=== PATIENT | female | born 1965 | race Caucasian/White ===

== ENCOUNTER 2018-09-04 13:59 | Inpatient (IN) ==
[2018-09-04] MEDS ORDERED: ONDANSETRON INJ 2 MG/ML 2 ML VIAL IV STA (14:24)
[2018-09-04] MEDS ORDERED: SODIUM CHLORIDE 0.9% 500 ML IV SCH (14:30)
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
[2018-09-04 15:08] LABS: Hematocrit (blood only) 42.9 % (37-47); Hemoglobin 15.6 g/dL (12.0-16.0); INR 1.7 (0.9-1.1); Mean Corpuscular Hgb Conc 36.4 g/dL (32-36); Mean Corpuscular Volume 98.4 fL (80-100); Mean Platelet Volume 12.5 fL (7.4-10.4); Nucleated RBC # (auto) 0.07 K/uL (0-0); Nucleated RBC % (auto) 0.2 %; Partial Thromboplastin Ratio 1.3; Partial Thromboplastin Time 34.9 Seconds (21.0-31.0); Platelet Count 183 K/uL (130-400); Prothrombin Time 16.6 Seconds (9.0-12.0); RDW Coefficient of Variation 14.1 % (11.5-14.5); RDW Standard Deviation 50.5 fL (36.4-46.3); Red Blood Count 4.36 M/uL (4.2-5.4); White Blood Count 32.08 K/uL (4.8-10.8)
[2018-09-04] MEDS: MoRPHine SULFATE 2 MG/ML CARP IV PRN (15:10)
[2018-09-04] MEDS ORDERED: PIPERACILLIN/TAZOBACTAM 4.5 GM/120 ML BAG IV ONE (15:10)
--- NOTE | 2018-09-04 15:13 | XRay Report ---
XR chest 1V portable CLINICAL HISTORY: weakness COMPARISON STUDY: Chest radiograph July 02, 2018. FINDINGS: Lung volumes are mildly diminished. There is no pneumothorax or pleural effusion. There is no evidence for pulmonary edema. Cardiomediastinal silhouette is normal. IMPRESSION: No acute cardiopulmonary findings. Electronically signed by: Guy Dyer M.D. 09/04/2018 3:11 PM
[2018-09-04] MEDS: ALBUMIN 25% 50 ML IV SCH ×2 (15:19→15:42)
[2018-09-04 15:23] LABS: Basophils # (auto) 0.04 K/uL (0-0.2); Basophils % (auto) 0.1 %; Eosinophils # (auto) 0.01 K/uL (0-0.5); Immature Granulocytes # (auto) 0.17 K/uL (0.00-0.02); Immature Granulocytes % (auto) 0.5 %; Lymphocytes # (auto) 0.69 K/uL (1.2-3.4); Lymphocytes % (auto) 2.2 %; Neutrophils # (auto) 28.27 K/uL (1.4-6.5); Neutrophils % (auto) 88.2 %; Toxic Vacuolation 1+
[2018-09-04 15:34] LABS: Alanine Aminotransferase 61 U/L (12-78); Albumin Level 2.1 gm/dl (3.4-5.0); Alkaline Phosphatase 379 U/L (45-117); Aspartate Aminotransferase 187 U/L (15-37); Bilirubin,Total 24.6 mg/dl (0.2-1); Blood Urea Nitrogen 16 mg/dl (7-18); Calcium 9.1 mg/dl (8.5-10.1); Carbon Dioxide 28 mmol/L (21-32); Chloride 86 mmol/L (98-107); Creatine Kinase 48 U/L (26-192); Glucose 110 mg/dl (70-99); Potassium 3.3 mmol/L (3.5-5.1); Sodium 125 mmol/L (136-145); Troponin I < 0.015 ng/ml (0-0.045)
[2018-09-04] MEDS ORDERED: SODIUM CHLORIDE 0.9% 1000ML 500 ML IV ONE (15:38)
--- NOTE | 2018-09-04 17:25 | Ultrasound Report ---
ULTRASOUND GUIDED DIAGNOSTIC AND THERAPEUTIC PARACENTESIS CLINICAL HISTORY: Ascites. Jaundice. PROCEDURE: The risks, benefits, and alternatives to the procedure were discussed with the patient inc luding the risk of bleeding, infection and injury to adjacent structures. The patient agreed to the procedure and informed written consent was obtained. Following real-time ultrasound localization, the skin of the right lower quadrant was prepped and draped. Following local anesthesia with Xylocaine, the sheath paracentesis needle was inserted and approximately 2.3 liters of straw-colored fluid was r emoved by vacuum suction. The patient tolerated the procedure well and no immediate complications were evident. IMPRESSION: Ultrasound-guided paracentesis with removal of 2.3 liters of ascites. 1 L of ascites was sent to the laboratory as ordered. Electronically signed by: Guy Dyer M.D. 09/04/2018 5:24 PM
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
--- NOTE | 2018-09-04 17:39 | Ultrasound Report ---
US gallbladder CLINICAL HISTORY: Jaundice. COMPARISON STUDY: MRCP September 01, 2018. FINDINGS: The liver is echogenic. There is coarsening of hepatic echotexture. The main portal pain is patent with with hepatofugal flow. A small amount of perihepatic ascites is noted. Sludge within the gallbladder was noted. There is mild gallbladder wall thickening. No sonographic Kaur sign was rep orted. Caliber of the common bile duct is at the upper limits of normal. There is no right hydronephr osis. The pancreas is within normal limits. IMPRESSION: 1. Fatty infiltration of the liver with cirrhosis. Reversal of flow within the main portal vein sugge sts portal hypertension. 2. Small amount of perihepatic ascites. 3. Sludge within the gallbladder with mild gallbladder wall thickening. No sonographic Kaur sign. N o convincing evidence for acute cholecystitis. Electronically signed by: Guy Dyer M.D. 09/04/2018 5:37 PM
[2018-09-04 17:41] LABS: Albumin Peritoneal Fluid < 0.6 g/dl; Total Protein Peritoneal Fluid 0.5 g/dl
[2018-09-04 17:53] LABS: Appearance Peritoneal Fluid CLEAR; Color Peritoneal Fluid YELLOW; Mononuclear WBC Peritoneal 72.7 %; Polynuclear WBC Peritoneal 27.3 %; RBC Peritoneal Fluid (A) < 3000 /uL; WBC Peritoneal Fluid (A) 92 /ul (0-300)
[2018-09-04] MEDS ORDERED: ONDANSETRON INJ 2 MG/ML 2 ML VIAL IV PRN (18:11)
[2018-09-04] MEDS ORDERED: ALUMINUM/MAGNESIUM SUSP 30 ML UDC PO PRN (18:11)
[2018-09-04 18:59] LABS: Appearance Urine Clear (Clear); Blood Urine Negative (Negative); Color Urine Dark Yellow; Glucose Urine UA Negative (Negative); Ketones Urine Negative (Negative); Leukocyte Esterase Urine Negative (Negative); Nitrite Urine Negative (Negative); Protein Urine Negative (Negative); Urobilinogen Urine Negative (Negative)
[2018-09-04] MEDS ORDERED: CEFEPIME 2,000 MG in SYRINGE 7.5 ML IV ONE (19:00)
[2018-09-04 19:01] LABS: Bilirubin Urine 1+ (Negative); Ictotest Urine Positive (Negative)
[2018-09-04] MEDS: SODIUM CHLORIDE 0.9% 1000ML 1,000 ML IV SCH (19:35)
[2018-09-04] MEDS ORDERED: methylPREDNISolone 40 MG in SYRINGE 0 ML IV ONE (20:00)
[2018-09-04] MEDS: POTASSIUM CHLORIDE 20 MEQ TABCR PO SCH (20:24)
[2018-09-05 05:00] LABS: Creatinine Clr Calc Pharmacy 68.6 ml/min; Est GFR (African American) 99.8; Est GFR (Non-African American) 86.1
[2018-09-05 06:27] LABS: Basophils # (auto) 0.02 K/uL (0-0.2); Basophils % (auto) 0.1 %; Eosinophils # (auto) 0.01 K/uL (0-0.5); Hemoglobin 13.7 g/dL (12.0-16.0); Immature Granulocytes # (auto) 0.09 K/uL (0.00-0.02); Immature Granulocytes % (auto) 0.4 %; Lymphocytes # (auto) 0.44 K/uL (1.2-3.4); Lymphocytes % (auto) 2.1 %; Mean Corpuscular Hgb Conc 36.1 g/dL (32-36); Mean Corpuscular Volume 97.2 fL (80-100); Mean Platelet Volume 12.4 fL (7.4-10.4); Monocytes # (auto) 0.88 K/uL (0.11-0.59); Monocytes % (auto) 4.1 %; Neutrophils % (auto) 93.3 %; Platelet Count 131 K/uL (130-400); RDW Coefficient of Variation 14.1 % (11.5-14.5); RDW Standard Deviation 50.1 fL (36.4-46.3); Red Blood Count 3.91 M/uL (4.2-5.4); White Blood Count 21.24 K/uL (4.8-10.8)
[2018-09-05 06:36] LABS: INR 1.8 (0.9-1.1)
[2018-09-05 07:23] LABS: Alanine Aminotransferase 50 U/L (12-78); Albumin Level 2.2 gm/dl (3.4-5.0); Alkaline Phosphatase 302 U/L (45-117); Aspartate Aminotransferase 146 U/L (15-37); Bilirubin,Total 22.8 mg/dl (0.2-1); Blood Urea Nitrogen 14 mg/dl (7-18); Carbon Dioxide 28 mmol/L (21-32); Chloride 90 mmol/L (98-107); Glucose 108 mg/dl (70-99); Potassium 2.8 mmol/L (3.5-5.1); Sodium 125 mmol/L (136-145)
[2018-09-05] MEDS: SODIUM CHLORIDE 0.9% 1000ML 1,000 ML IV SCH (08:12)
[2018-09-05] MEDS: POTASSIUM CHLORIDE 20 MEQ TABCR PO SCH ×2 (08:21→21:26)
[2018-09-05] MEDS: SPIRONOLACTONE 100 MG TAB PO SCH (08:22)
[2018-09-05] MEDS: POTASSIUM CHLORIDE / WTR 10 MEQ/100 ML PLCT IV SCH ×4 (08:37→12:27)
[2018-09-05] MEDS ORDERED: methylPREDNISolone 4 MG TAB PO SCH (09:00)
[2018-09-05] MEDS: CEFEPIME 2,000 MG in SYRINGE 7.5 ML IV SCH ×2 (09:47→21:23)
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
--- NOTE | 2018-09-05 10:00 | Gastroenterology Progress Note ---
Date of Service September 05, 2018 Supervising Physician Co-Signing Physician Notes This consult was seen for Case Results & Data Vital Signs (Past 12 Hours) Vital Signs Temp Pulse Pulse Resp BP Pulse Ox 09/05/18 07:01 36.7 C 92 H 15 110/70 91 09/05/18 00:00 88 09/04/18 23:05 36.4 C L 90 18 107/70 93
[2018-09-05] MEDS: ALBUMIN 25% 50 ML IV SCH ×3 (10:53→21:25)
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
[2018-09-05] MEDS: FUROSEMIDE 40 MG TAB PO SCH (11:12)
[2018-09-05] MEDS: MoRPHine SULFATE 2 MG/ML CARP IV PRN ×2 (11:14→21:23)
[2018-09-06 06:04] LABS: Alanine Aminotransferase 45 U/L (12-78); Albumin Level 2.6 gm/dl (3.4-5.0); Alkaline Phosphatase 274 U/L (45-117); Aspartate Aminotransferase 116 U/L (15-37); Bilirubin,Total 21.3 mg/dl (0.2-1); Blood Urea Nitrogen 16 mg/dl (7-18); Calcium 8.4 mg/dl (8.5-10.1); Carbon Dioxide 29 mmol/L (21-32); Chloride 92 mmol/L (98-107); Glucose 102 mg/dl (70-99); Potassium 3.3 mmol/L (3.5-5.1); Sodium 126 mmol/L (136-145)
[2018-09-06 06:22] LABS: Hematocrit (blood only) 37.6 % (37-47); Hemoglobin 13.4 g/dL (12.0-16.0); Mean Corpuscular Hgb Conc 35.6 g/dL (32-36); Mean Corpuscular Volume 96.9 fL (80-100); Platelet Count 124 K/uL (130-400); RDW Standard Deviation 49.6 fL (36.4-46.3); Red Blood Count 3.88 M/uL (4.2-5.4); White Blood Count 24.88 K/uL (4.8-10.8)
[2018-09-06 06:32] LABS: Basophils # (auto) 0.01 K/uL (0-0.2); Echinocytes 1+; Giant Platelets 1+; Immature Granulocytes # (auto) 0.11 K/uL (0.00-0.02); Immature Granulocytes % (auto) 0.4 %; Lymphocytes # (auto) 0.74 K/uL (1.2-3.4); Monocytes # (auto) 2.74 K/uL (0.11-0.59); Neutrophils # (auto) 21.28 K/uL (1.4-6.5); Neutrophils % (auto) 85.6 %; Pappenheimer Bodies Occasional; Platelet Estimate Normal (Normal); Target Cells 1+; Toxic Vacuolation 2+
[2018-09-06 06:58] LABS: INR 1.9 (0.9-1.1); Prothrombin Time 18.3 Seconds (9.0-12.0)
[2018-09-06] MEDS: SPIRONOLACTONE 100 MG TAB PO SCH (08:37)
[2018-09-06] MEDS: FUROSEMIDE 40 MG TAB PO SCH (08:37)
[2018-09-06] MEDS: POTASSIUM CHLORIDE 20 MEQ TABCR PO SCH (08:38)
[2018-09-06] MEDS: ALBUMIN 25% 50 ML IV SCH ×3 (08:38→21:37)
[2018-09-06] MEDS: MoRPHine SULFATE 2 MG/ML CARP IV PRN ×3 (09:36→21:37)
--- NOTE | 2018-09-06 09:59 | Gastroenterology Progress Note ---
Date of Service September 06, 2018 Assessment & Plan (1) Liver failure: Alcoholic cirrhosis with portal hypertension and possible SBP. MELD is 30. She is following with [facility]'s Transplant Hepatology. T Bili may have worsened due to Augmentin use. -Continue IV Cefepime for treatment of possible SBP x 5 days -Continue to trend labs/MELD score -Continue IV Lasix & Aldactone with 40:100 ratio -Continue IV albumin as previously ordered by Dr. Corrigan -Alcohol abstinence is critical, particularly due to potential transplant needs If fluid reaccumulates, consider repeat paracentesis. Thank you for allowing us to participate in the care of this patient. If you should have any further questions or concerns, do not hesitate to contact us at extension [phone] or [phone]. Present on Admission?: Yes Supervising Physician Co-Signing Physician Notes Agree with TYLER Elizabeth as above Abd: Soft, NT, + fluid wave, +BS Long discussion with patient and her father regarding short-term (90 day) mortality as evidenced by MELD and Bilirubin and long-term morbidity and mortality I encouraged them to continue followup with Dr. Cotton of [facility] for transplant evaluation Will discuss Midodrine therapy with him directly, though think it is reasonable to hold it for now Continue current therapy Discussed need for total abstinence from alcohol and she states she has not had a drink in 3 weeks Will follow clinical course and make further recommendations as needed. Subjective Patient is a 53 yo female with cirrhosis, jaundice, & possible SBP. Her MELD score is 30 today. She had a paracentesis upon admission. WBCs did not meet threshold for SBP, however patient was on antibiotics prior to the paracentesis (during which 2.3 L were removed). She reports her abdominal bloating and discomfort has improved. She is notably jaundiced. She saw [facility] last week and was placed on Metolazone. Unfortunately, her K did not tolerate this well. She had further labs performed through them as well. The etiology for her cirrhosis is alcoholic. Her autoimmune and infectious hepatitis work-up has been negative. She denies any new complaints. Labs today indicate a WBC count of 24.88, INR 1.9, K 3.3, Na 126, T Bili 21.3, AST 116, ALT 45, Alk phos 274, Cr 0.78. Review of Systems Constitutional: no fever and no chills Eyes: yellow eyes Respiratory: no cough Cardiovascular: no chest pain Gastrointestinal: no abdominal pain and no bloating Musculoskeletal: + back pain Integumentary: + yellowing of the skin Neurologic: no confusion Physical Exam Constitutional: WD/WN, vitals as above Eyes: scleral icterus ENMT: external ear and nose normal, oropharynx normal Respiratory: normal respiratory effort, lungs clear to auscultation Cardiovascular: RRR, no murmur, no edema Gastrointestinal (Abdomen): normal bowel sounds, soft, nontender, no hepatosplenomegaly Musculoskeletal: no cyanosis or clubbing, extremities motor strength 5/5 Skin: + jaundice Neurologic: moves all extremities Speech / Cognition: normal speech Psychiatric: A+Ox3, euthymic affect Results & Data Vital Signs (Past 12 Hours) Vital Signs Temp Pulse Resp BP Pulse Ox 09/06/18 07:45 36.7 C 92 H 18 115/75 91 09/06/18 04:00 37 C 71 20 110/71 100 09/05/18 23:12 36.8 C 87 16 115/72 92 (1) Liver failure Hepatic coma status: without hepatic coma Liver failure chronicity: subacute Qualified Code(s): K72.00 - Acute and subacute hepatic failure without coma
[2018-09-06] MEDS: CEFEPIME 2,000 MG in SYRINGE 7.5 ML IV SCH ×2 (10:42→21:37)
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
[2018-09-06] MEDS: POTASSIUM CHLORIDE PWD 20 MEQ PACK PO SCH (21:37)
[2018-09-07 05:45] LABS: Hematocrit (blood only) 37.6 % (37-47); Hemoglobin 13.6 g/dL (12.0-16.0); Mean Corpuscular Hgb Conc 36.2 g/dL (32-36); Mean Corpuscular Volume 97.7 fL (80-100); Mean Platelet Volume 12.1 fL (7.4-10.4); Platelet Count 110 K/uL (130-400); RDW Coefficient of Variation 14.1 % (11.5-14.5); RDW Standard Deviation 49.8 fL (36.4-46.3); Red Blood Count 3.85 M/uL (4.2-5.4); White Blood Count 23.76 K/uL (4.8-10.8)
[2018-09-07 05:46] LABS: INR 1.9 (0.9-1.1); Prothrombin Time 18.4 Seconds (9.0-12.0)
[2018-09-07 05:58] LABS: Basophils # (auto) 0.02 K/uL (0-0.2); Basophils % (auto) 0.1 %; Eosinophils # (auto) 0.03 K/uL (0-0.5); Eosinophils % (auto) 0.1 %; Giant Platelets 1+; Immature Granulocytes # (auto) 0.14 K/uL (0.00-0.02); Immature Granulocytes % (auto) 0.6 %; Lymphocytes # (auto) 1.14 K/uL (1.2-3.4); Lymphocytes % (auto) 4.8 %; Monocytes # (auto) 1.77 K/uL (0.11-0.59); Monocytes % (auto) 7.4 %; Neutrophils # (auto) 20.66 K/uL (1.4-6.5)
[2018-09-07 06:16] LABS: Alanine Aminotransferase 43 U/L (12-78); Albumin Level 2.8 gm/dl (3.4-5.0); Alkaline Phosphatase 274 U/L (45-117); Aspartate Aminotransferase 123 U/L (15-37); Bilirubin,Total 20.6 mg/dl (0.2-1); Blood Urea Nitrogen 17 mg/dl (7-18); Calcium 9.2 mg/dl (8.5-10.1); Carbon Dioxide 27 mmol/L (21-32); Chloride 90 mmol/L (98-107); Glucose 92 mg/dl (70-99); Potassium 3.5 mmol/L (3.5-5.1); Sodium 127 mmol/L (136-145)
[2018-09-07] MEDS: ALBUMIN 25% 50 ML IV SCH ×3 (08:23→20:45)
[2018-09-07] MEDS: POTASSIUM CHLORIDE PWD 20 MEQ PACK PO SCH ×2 (08:54→20:47)
[2018-09-07] MEDS: SPIRONOLACTONE 100 MG TAB PO SCH (08:54)
[2018-09-07] MEDS: FUROSEMIDE 40 MG TAB PO SCH (08:54)
[2018-09-07] MEDS: CEFEPIME 2,000 MG in SYRINGE 7.5 ML IV SCH ×2 (08:59→20:45)
[2018-09-07] MEDS: MoRPHine SULFATE 2 MG/ML CARP IV PRN ×3 (09:39→22:21)
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
[2018-09-07] MEDS ORDERED: LACTULOSE SYRUP 30 GM/45 ML UDP PO ONE (16:30)
--- NOTE | 2018-09-07 18:50 | Progress Note ---
DATE: 09/07/2018 GASTROENTEROLOGY PROGRESS NOTE RACE: . SUBJECTIVE: I had the pleasure of seeing Esther Sutherland today at her bedside. She does state that she is having some increased abdominal girth, which she notices since yesterday. She did have a bowel movement overnight, though states that it was small. She does tolerate her liquid diet at the present time. She denies any hematemesis, melena, or hematochezia. She further denies any chest pain, palpitations, shortness of breath, cough, dysuria, or hematuria. She does continue to note dark urine. She has no further complaints. REVIEW OF SYSTEMS: Negative x10 system review other than pertinent positives listed in the HPI. PHYSICAL EXAMINATION: VITAL SIGNS: Temp 36.6, pulse 92, respirations 19, blood pressure 106/71, pulse ox 91% on room air. GENERAL: She has noted jaundice. Chronic ill appearing. HEAD: Normocephalic, atraumatic. EYES: Pupils equally round. Sclerae are icteric. ENT: External evaluation of ears and nose are normal. NECK: Soft and supple. CHEST: Decreased breath sounds in bilateral bases. CARDIOVASCULAR SYSTEM: Regular rate and rhythm. ABDOMEN: Soft, positive fluid wave, distended. Positive bowel sounds. EXTREMITIES: No clubbing, cyanosis, or edema. LABORATORY STUDIES: From today include a white blood cell count of 23.76, hemoglobin 13.6, hematocrit 37.6 and a platelet count of 110. PT 18.4, INR 1.9. Sodium 127, potassium 3.5, chloride 90, bicarbonate 27, blood glucose 92, BUN 17, creatinine 0.78, total bilirubin 20.6, AST 123, ALT 43, alkaline phosphatase 274. IMPRESSION: A 53-year-old female with decompensated Laennec's cirrhosis with questionable spontaneous bacterial peritonitis, ascites and no evidence of acute liver failure. PLAN: I did discuss the case in detail with Dr. Yury Han' nurse, today at [facility]. I also arranged to have the patient's records transferred including the inpatient medical records transferred with permission from Esther for his review. I would recommend at the present time that she be continued on cefepime 2 g IV q.12 hours as well as Aldactone 100 mg p.o. q.a.m., furosemide 40 mg p.o. q.a.m. and p.r.n. medications as prescribed. I will await any input from Dr. Cotton and follow her clinical course and make further recommendations as needed. Once again, thanks for allowing me to participate in the care of this patient. If you have any further questions, please do not hesitate in contacting me.
[2018-09-08 06:30] LABS: Hematocrit (blood only) 37.1 % (37-47); Hemoglobin 13.3 g/dL (12.0-16.0); Mean Corpuscular Hgb Conc 35.8 g/dL (32-36); Mean Corpuscular Volume 97.4 fL (80-100); RDW Coefficient of Variation 14.1 % (11.5-14.5); RDW Standard Deviation 49.9 fL (36.4-46.3); Red Blood Count 3.81 M/uL (4.2-5.4); White Blood Count 26.29 K/uL (4.8-10.8)
[2018-09-08 06:32] LABS: Mean Platelet Volume 11.7 fL (7.4-10.4); Platelet Count 89 K/uL (130-400)
[2018-09-08 06:41] LABS: INR 1.9 (0.9-1.1); Prothrombin Time 18.3 Seconds (9.0-12.0)
[2018-09-08 07:14] LABS: Alanine Aminotransferase 39 U/L (12-78); Albumin Level 3.1 gm/dl (3.4-5.0); Alkaline Phosphatase 280 U/L (45-117); Aspartate Aminotransferase 113 U/L (15-37); Bilirubin,Total 20.9 mg/dl (0.2-1); Blood Urea Nitrogen 14 mg/dl (7-18); Calcium 8.8 mg/dl (8.5-10.1); Carbon Dioxide 28 mmol/L (21-32); Chloride 92 mmol/L (98-107); Glucose 94 mg/dl (70-99); Magnesium 2.2 mg/dl (1.8-2.4); Potassium 3.4 mmol/L (3.5-5.1); Sodium 128 mmol/L (136-145)
[2018-09-08] MEDS: FUROSEMIDE 40 MG TAB PO SCH (09:01)
[2018-09-08] MEDS: POTASSIUM CHLORIDE PWD 20 MEQ PACK PO SCH ×2 (09:01→20:16)
[2018-09-08] MEDS: ALBUMIN 25% 50 ML IV SCH (09:01)
[2018-09-08] MEDS: SPIRONOLACTONE 100 MG TAB PO SCH (09:01)
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
[2018-09-08] MEDS: CEFEPIME 2,000 MG in SYRINGE 7.5 ML IV SCH ×2 (09:51→20:16)
[2018-09-08] MEDS: MoRPHine SULFATE 2 MG/ML CARP IV PRN ×2 (10:40→15:18)
--- NOTE | 2018-09-08 13:57 | Ultrasound Report ---
PARACENTESIS UNDER ULTRASOUND GUIDANCE CLINICAL HISTORY: ascites POSSIBLE SPONTANEOUS BACTERIAL PERITONITIS COMPARISON STUDY: 09/04/2018 FINDINGS: A timeout was performed. The risks of procedure were explained to the patient informed consent was obtained. There is insufficient ascitic fluid present for therapeutic catheter paracentesis. There is a small c ollection of fluid within the right lower quadrant. The patient was prepped and draped in sterile fas hion. The skin was anesthetized with 1% lidocaine. Under ultrasound guidance, the peritoneal cavity w as entered with an 18-gauge needle. 120 cc of ascitic fluid was aspirated and sent to the laboratory for analysis. The patient tolerated the procedure well and left the department in satisfactory condit ion. IMPRESSION: 1. There was insufficient fluid for a therapeutic paracentesis. 2. Ultrasound-guided diagnostic paracentesis was performed. 120 cc of straw-colored fluid was aspirat ed and sent to the laboratory for analysis. Electronically signed by: Geoffrey Huffman M.D. 09/08/2018 1:56 PM
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
[2018-09-08 14:27] LABS: Albumin Peritoneal Fluid 0.7 g/dl
[2018-09-08 14:53] LABS: Appearance Peritoneal Fluid CLEAR; Color Peritoneal Fluid YELLOW; Mononuclear WBC Peritoneal 74.3 %; Polynuclear WBC Peritoneal 25.7 %; RBC Peritoneal Fluid (A) < 3000 /uL; WBC Peritoneal Fluid (A) 143 /ul (0-300)
[2018-09-09] MEDS: MoRPHine SULFATE 2 MG/ML CARP IV PRN ×3 (00:39→20:55)
[2018-09-09 07:36] LABS: Hematocrit (blood only) 38.6 % (37-47); Hemoglobin 13.9 g/dL (12.0-16.0); Mean Corpuscular Volume 98.2 fL (80-100); Mean Platelet Volume 11.2 fL (7.4-10.4); Platelet Count 76 K/uL (130-400); RDW Coefficient of Variation 14.1 % (11.5-14.5); RDW Standard Deviation 50.7 fL (36.4-46.3); Red Blood Count 3.93 M/uL (4.2-5.4); White Blood Count 30.32 K/uL (4.8-10.8)
[2018-09-09 07:41] LABS: INR 1.8 (0.9-1.1); Prothrombin Time 17.5 Seconds (9.0-12.0)
[2018-09-09 07:45] LABS: Alanine Aminotransferase 40 U/L (12-78); Alkaline Phosphatase 302 U/L (45-117); Aspartate Aminotransferase 118 U/L (15-37); Calcium 8.6 mg/dl (8.5-10.1); Carbon Dioxide 26 mmol/L (21-32); Chloride 93 mmol/L (98-107); Glucose 87 mg/dl (70-99); Magnesium 2.1 mg/dl (1.8-2.4); Sodium 127 mmol/L (136-145)
[2018-09-09 08:26] LABS: Blood Urea Nitrogen 14 mg/dl (7-18)
[2018-09-09 08:33] LABS: Bilirubin,Total 22.8 mg/dl (0.2-1)
[2018-09-09] MEDS: FUROSEMIDE 40 MG TAB PO SCH (08:47)
[2018-09-09] MEDS: SPIRONOLACTONE 100 MG TAB PO SCH (08:47)
[2018-09-09] MEDS: POTASSIUM CHLORIDE PWD 20 MEQ PACK PO SCH ×2 (08:47→20:55)
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
--- NOTE | 2018-09-09 09:28 | Gastroenterology Progress Note ---
Date of Service September 09, 2018 Assessment & Plan (1) Liver failure: Alcoholic cirrhosis with portal hypertension and possible SBP. MELD ranging between 25-35 this visit. She is following with [facility]'s Transplant Hepatology. -Continue IV Cefepime for treatment of possible SBP x 5 days total -Continue to trend labs/MELD score -Continue IV Lasix & Aldactone with 40:100 ratio -Given worsening leukocytosis, plan to davison-culture patient with Urinalysis/culture, blood culture, CXR, peripheral smear, & obtain ID opinion regarding leuocytosis -Alcohol abstinence is critical, particularly due to potential transplant needs Thank you for allowing us to participate in the care of this patient. If you should have any further questions or concerns, do not hesitate to contact us at extension [phone] or [phone]. Supervising Physician Co-Signing Physician Notes Agree with TYLER Elizabeth as above Abd: Soft, tender throughout, slightly distended, +BS Consistently elevated WBC on Cefepime for possible SBP ID consulted Pancultured Continue current therapy Continue supportive care Subjective Patient is 53 yo female with cirrhosis & liver failure. She underwent a repeat paracentesis on 09/08. Only 120 ccs were present to drain and fluid studies indicated WBC count of 143. Her WBC count bumped today to 30.32. She reports some abdominal bloating. She denies any new symptoms. Review of Systems Eyes: yellow eyes Respiratory: no cough and no dyspnea Cardiovascular: no chest pain Gastrointestinal: + bloating; no abdominal pain Moving bowels multiple times daily Integumentary: + yellowing of the skin Neurologic: no confusion Physical Exam Constitutional: WD/WN, vitals as above Respiratory: normal respiratory effort, lungs clear to auscultation Cardiovascular: RRR, no murmur, no edema Gastrointestinal (Abdomen): normal bowel sounds, soft, nontender, no hepatosplenomegaly Skin: + jaundice Results & Data Vital Signs (Past 12 Hours) Vital Signs Temp Pulse Resp BP Pulse Ox 09/09/18 07:31 36.8 C 88 17 109/69 95 09/09/18 04:15 36.7 C 92 H 18 116/75 93 09/09/18 00:00 37.0 C 95 H 16 116/73 93 (1) Liver failure Hepatic coma status: without hepatic coma Liver failure chronicity: subacute Qualified Code(s): K72.00 - Acute and subacute hepatic failure without coma
--- NOTE | 2018-09-09 10:03 | XRay Report ---
XR chest 2V routine CLINICAL HISTORY: Elevated WBC COMPARISON STUDY: 09/04/2018 FINDINGS: The heart is normal in size. There are basilar airspace opacities, atelectatic versus infec tious/inflammatory. There is no overt failure. There is equivocal trace left pleural effusion.[ IMPRESSION: Interval development of basilar airspace opacities. While likely atelectatic, an infectio us/inflammatory process could appear similar Electronically signed by: Geoffrey Huffman M.D. 09/09/2018 10:02 AM
[2018-09-09 10:06] LABS: Appearance Urine Cloudy (Clear); Bacteria Urine Automated Negative (Negative); Blood Urine Negative (Negative); Color Urine Dark Yellow; Epithelial Cell Urine Auto >30 /lpf (0-5); Glucose Urine UA Negative (Negative); Specific Gravity Urine 1.021 (1.000-1.030); Urobilinogen Urine Negative (Negative)
[2018-09-09 10:21] LABS: Cast Urine Automated >30 /lpf (0-5)
[2018-09-09] MEDS: CEFEPIME 2,000 MG in SYRINGE 7.5 ML IV SCH ×2 (10:42→20:56)
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
[2018-09-10 07:27] LABS: INR 1.7 (0.9-1.1); Prothrombin Time 16.6 Seconds (9.0-12.0)
[2018-09-10 07:28] LABS: Hematocrit (blood only) 39.7 % (37-47); Hemoglobin 14.2 g/dL (12.0-16.0); Mean Corpuscular Hgb Conc 35.8 g/dL (32-36); Mean Corpuscular Volume 97.3 fL (80-100); Mean Platelet Volume 11.9 fL (7.4-10.4); Platelet Count 74 K/uL (130-400); RDW Coefficient of Variation 14.1 % (11.5-14.5); RDW Standard Deviation 50.2 fL (36.4-46.3); Red Blood Count 4.08 M/uL (4.2-5.4); White Blood Count 30.41 K/uL (4.8-10.8)
[2018-09-10 08:16] LABS: Alanine Aminotransferase 40 U/L (12-78); Albumin Level 2.8 gm/dl (3.4-5.0); Alkaline Phosphatase 337 U/L (45-117); Aspartate Aminotransferase 112 U/L (15-37); Bilirubin,Total 23.7 mg/dl (0.2-1); Blood Urea Nitrogen 15 mg/dl (7-18); Calcium 8.7 mg/dl (8.5-10.1); Carbon Dioxide 26 mmol/L (21-32); Chloride 92 mmol/L (98-107); Glucose 85 mg/dl (70-99); Potassium 4.4 mmol/L (3.5-5.1); Sodium 124 mmol/L (136-145)
[2018-09-10] MEDS: SPIRONOLACTONE 100 MG TAB PO SCH (08:40)
[2018-09-10] MEDS: POTASSIUM CHLORIDE PWD 20 MEQ PACK PO SCH ×2 (08:40→20:43)
[2018-09-10] MEDS: FUROSEMIDE 40 MG TAB PO SCH (08:40)
[2018-09-10] MEDS: CEFEPIME 2,000 MG in SYRINGE 7.5 ML IV SCH (08:42)
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
[2018-09-10] MEDS ORDERED: NORMOSOL-R 250 ML IV ONE ×2 (11:55→12:30)
[2018-09-10] MEDS: MoRPHine SULFATE 2 MG/ML CARP IV PRN ×3 (12:18→21:04)
[2018-09-10] MEDS ORDERED: IOVERSOL 100ml IV PRN (12:47)
--- NOTE | 2018-09-10 13:48 | CT Scan Report ---
CT lumbar spine w con CLINICAL HISTORY: 53 years-old Female presenting with Back pain; concern for infection. TECHNIQUE: Multidetector CT of the lumbar spine was performed after the administration of intravenous contrast. IV contrast: 93 mL of Optiray 320. One or more dose lowering techniques were used consiste nt with the principles of ALARA (as low as reasonably achievable), including automatic exposure contr ol, mA or kV adjustment to individual patient size, and/or use of iterative reconstruction. COMPARISON: 07/02/2018. CT DOSE (mGy.cm): The estimated cumulative dose is 502.49 mGy.cm. 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 Normal lumbar lordosis. Vertebral bodies maintain normal height and alignment. Intervertebral disc he ights preserved. No osseous spinal canal and neural foraminal narrowing. No osseous erosion. Limited evaluation of the soft tissues on CT demonstrates no spinal canal effacement. No significant effaceme nt of the neural foraminal fat. Trace osteophytosis at L2-3 and L3-4. No infiltration of the paraspin al fat planes. Paraspinal musculature normal. Mucosal hyperemia of the gallbladder with significant gallbladder wall thickening and/or pericholecys tic fluid, which may be secondary. There is a small to moderate amount of ascites. Heterogeneity of t he liver likely correlates with known underlying cirrhosis. Atherosclerosis of the normal caliber abd ominal aorta. IMPRESSION: 1. No acute osseous injury or evidence of advanced degenerative change. No CT evidence of discitis o steomyelitis. 2. Cirrhosis with ascites. Gallbladder wall thickening is likely secondary to cirrhosis. Electronically signed by: Dragan Corley M.D. 09/10/2018 1:47 PM
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
--- NOTE | 2018-09-10 16:38 | Infectious Disease Progress Nt ---
Date of Service September 10, 2018 Assessment & Plan (1) Spontaneous bacterial peritonitis: 53-year-old female with end-stage liver disease from alcoholic cirrhosis, admitted with abdominal pain and marked leukocytosis. Although paracentesis findings not consistent with peritonitis, patient has been on antibiotics prior to obtaining specimen. Significance of increase in white count of unclear significance given clinical improvement. Suspect she now has an elevated baseline white blood cell count and is hovering around that. No evidence of back infection on CT scanning. Would continue on cefepime for now and follow white count. Will follow. Subjective Patient seen in follow-up for possible bacterial peritonitis. Will complain of back pain, CT scan negative for evidence of infection. White count remains elevated. Cultures still negative. Review of Systems Review of Systems: All systems reviewed & are unremarkable except as noted in HPI & below Physical Exam Constitutional: WD/WN, vitals as above no acute distress Eyes: PERRL, conjunctivae normal, anicteric sclerae ENMT: external ear and nose normal, oropharynx normal Neck: trachea midline, no thyromegaly normal visual inspection Respiratory: normal respiratory effort, lungs clear to auscultation no respiratory distress Cardiovascular: RRR, no murmur, no edema Heart Sounds: no gallop and no cardiac rub Gastrointestinal (Abdomen): Inspection/Auscultation: + abdomen distended and normal bowel sounds Percussion/Palpation: + abdomen tender; no hepatosplenomegaly and no abdominal mass Musculoskeletal: no cyanosis or clubbing, extremities motor strength 5/5 Head/Neck/Chest: normocephalic, head atraumatic and neck supple Skin: no rashes, warm and dry Neurologic: moves all extremities; no focal motor deficits Psychiatric: A+Ox3, euthymic affect Lymphatic: no cervical or axillary lymphadenopathy no inguinal lymphadenopathy Results & Data Vital Signs (Past 12 Hours) Vital Signs Temp Pulse Pulse Resp BP Pulse Ox 09/10/18 16:00 36.6 C 94 H 18 120/79 96 09/10/18 11:43 36.5 C 105 H 17 131/89 94 09/10/18 07:57 36.8 C 97 H 18 115/77 95 Laboratory Results Short CBC 09/10/18 Range/Units 06:45 WBC 30.41 H* (4.8-10.8) K/uL Hgb 14.2 (12.0-16.0) g/dL Hct 39.7 (37-47) % Plt Count 74 L (130-400) K/uL BMP 09/10/18 06:45 Sodium 124 L Potassium 4.4 Chloride 92 L Carbon Dioxide 26 BUN 15 Creatinine Glucose 85 Calcium 8.7 Liver Function 09/10/18 Range/Units 06:45 Total Bilirubin 23.7 H (0.2-1) mg/dl AST 112 H (15-37) U/L ALT 40 (12-78) U/L Alkaline Phosphatase 337 H (45-117) U/L Albumin 2.8 L (3.4-5.0) gm/dl Diagnostic Findings Microbiology 09/08/18 13:52 Peritoneal Fluid Gram Stain - Final 09/08/18 13:52 Peritoneal Fluid Aerobic and Anaerobic Culture - Preliminary No growth to date. 09/09/18 09:34 Blood Aerobic Blood Culture - Preliminary No growth in Aerobic bottle after 24 hours. 09/09/18 09:34 Blood Anaerobic Blood Culture - Preliminary No growth in Anaerobic bottle after 24 hours. 09/09/18 09:44 Blood Aerobic Blood Culture - Preliminary No growth in Aerobic bottle after 24 hours. 09/09/18 09:44 Blood Anaerobic Blood Culture - Preliminary No growth in Anaerobic bottle after 24 hours. 09/04/18 15:28 Blood Aerobic Blood Culture - Final No growth in Aerobic bottle after 5 days. 09/04/18 15:28 Blood Anaerobic Blood Culture - Final No growth in Anaerobic bottle after 5 days. 09/04/18 15:28 Blood Aerobic Blood Culture - Final No growth in Aerobic bottle after 5 days. 09/04/18 15:28 Blood Anaerobic Blood Culture - Final No growth in Anaerobic bottle after 5 days. 09/04/18 Unknown Peritoneal Fluid Gram Stain - Final 09/04/18 Unknown Peritoneal Fluid Aerobic and Anaerobic Culture - Final No growth CT lumbar spine w con CLINICAL HISTORY: 53 years-old Female presenting with Back pain; concern for infection. TECHNIQUE: Multidetector CT of the lumbar spine was performed after the administration of intravenous contrast. IV contrast: 93 mL of Optiray 320. One or more dose lowering techniques were used consistent with the principles of ALARA (as low as reasonably achievable), including automatic exposure control, mA or kV adjustment to individual patient size, and/or use of iterative reconstruction. COMPARISON: 07/02/2018. CT DOSE (mGy.cm): The estimated cumulative dose is 502.49 mGy.cm. FINDINGS: Teacher Music topogram: Unremarkable. Normal lumbar lordosis. Vertebral bodies maintain normal height and alignment. Intervertebral disc heights preserved. No osseous spinal canal and neural foraminal narrowing. No osseous erosion. Limited evaluation of the soft tissues on CT demonstrates no spinal canal effacement. No significant effacement of the neural foraminal fat. Trace osteophytosis at L2-3 and L3-4. No infiltration of the paraspinal fat planes. Paraspinal musculature normal. Mucosal hyperemia of the gallbladder with significant gallbladder wall thickening and/or pericholecystic fluid, which may be secondary. There is a small to moderate amount of ascites. Heterogeneity of the liver likely correlates with known underlying cirrhosis. Atherosclerosis of the normal caliber abdominal aorta. IMPRESSION: 1. No acute osseous injury or evidence of advanced degenerative change. No CT evidence of discitis osteomyelitis. 2. Cirrhosis with ascites. Gallbladder wall thickening is likely secondary to cirrhosis. Electronically signed by: Dragan Corley M.D. 09/10/2018 1:47 PM Dictated: 09/10/18 [id number]
[2018-09-11 06:16] LABS: Hematocrit (blood only) 38.8 % (37-47); Hemoglobin 13.7 g/dL (12.0-16.0); Mean Corpuscular Hgb Conc 35.3 g/dL (32-36); RDW Coefficient of Variation 14.2 % (11.5-14.5); RDW Standard Deviation 50.5 fL (36.4-46.3); White Blood Count 30.03 K/uL (4.8-10.8)
[2018-09-11 06:18] LABS: INR 1.6 (0.9-1.1); Prothrombin Time 16.1 Seconds (9.0-12.0)
[2018-09-11 06:48] LABS: Mean Platelet Volume 12.6 fL (7.4-10.4); Platelet Count 86 K/uL (130-400)
[2018-09-11 06:49] LABS: Platelet Estimate Decreased (Normal)
[2018-09-11 06:59] LABS: Albumin Level 2.6 gm/dl (3.4-5.0); Bilirubin,Total 23.3 mg/dl (0.2-1); Calcium 8.6 mg/dl (8.5-10.1); Potassium 4.8 mmol/L (3.5-5.1)
[2018-09-11] MEDS: POTASSIUM CHLORIDE PWD 20 MEQ PACK PO SCH (07:59)
[2018-09-11] MEDS: SPIRONOLACTONE 100 MG TAB PO SCH (07:59)
[2018-09-11] MEDS: FUROSEMIDE 40 MG TAB PO SCH (07:59)
[2018-09-11] MEDS: MoRPHine SULFATE 2 MG/ML CARP IV PRN ×3 (08:00→22:26)
[2018-09-11] MEDS ORDERED: DOCUSATE SODIUM 100 MG CAP PO ONE (12:06)
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
--- NOTE | 2018-09-11 13:13 | Ultrasound Report ---
ULTRASOUND ABDOMEN ASCITES CHECK CLINICAL HISTORY: Abdominal ascites. COMPARISON STUDY: [facility] dated 09/01/2018. FINDINGS: Real-time grayscale sonography of all 4 quadrants of the abdomen is performed to assess for abdominal ascites. There is a small volume of abdominopelvic ascites. The liver is cirrhotic in morp hology and heterogeneous in echotexture. Gallbladder wall thickening is nonspecific and likely relate d to cirrhosis and ascites. Biliary sludge is noted. IMPRESSION: There is a small volume of abdominopelvic ascites. Electronically signed by: Jay Lutz M.D. 09/11/2018 1:12 PM
[2018-09-12 06:16] LABS: Hematocrit (blood only) 38.3 % (37-47); Hemoglobin 13.7 g/dL (12.0-16.0); Mean Corpuscular Hgb Conc 35.8 g/dL (32-36); Mean Corpuscular Volume 96.7 fL (80-100); Mean Platelet Volume 11.9 fL (7.4-10.4); Platelet Count 83 K/uL (130-400); RDW Coefficient of Variation 14.3 % (11.5-14.5); RDW Standard Deviation 50.6 fL (36.4-46.3); Red Blood Count 3.96 M/uL (4.2-5.4)
[2018-09-12 06:34] LABS: INR 1.6 (0.9-1.1); Prothrombin Time 15.5 Seconds (9.0-12.0)
[2018-09-12 06:46] LABS: Albumin Level 2.5 gm/dl (3.4-5.0); Calcium 8.7 mg/dl (8.5-10.1); Potassium 4.4 mmol/L (3.5-5.1)
[2018-09-12 07:00] LABS: Bilirubin,Total 25.6 mg/dl (0.2-1)
[2018-09-12] MEDS: FUROSEMIDE 40 MG TAB PO SCH (08:37)
[2018-09-12] MEDS: SPIRONOLACTONE 100 MG TAB PO SCH (08:37)
[2018-09-12] MEDS: MoRPHine SULFATE 2 MG/ML CARP IV PRN ×4 (08:37→23:31)
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
--- NOTE | 2018-09-12 15:11 | Progress Note ---
DATE: 09/12/2018 GASTROENTEROLOGY PROGRESS NOTE I was contacted today by Dr. Romie Burroughs regarding Esther Sutherland as she has had worsening hyperbilirubinemia. 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 Cotton' nurse, Brianne, on Thursday and Thursday of the past week to keep them in the loop regarding the patient's medical condition as she does see Dr. 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 I did review the patient's labs as well as the patient's radiographic studies including a CT scan from 08/23, which was done at [facility], which showed patency of the portal vein, and a right upper quadrant ultrasound done at the same time at [facility], which showed normal portal venous blood flow as well. I did ask Dr. Burroughs to check hepatic Doppler studies and I did review the findings of laboratory studies including viral serologies as well as workup from autoimmune disease, hemochromatosis, Jt's - all of which returned normal. I also reviewed the patient's blood cultures, urine cultures and other x-ray studies and did review infectious disease notes and findings from peripheral smear that were done this week to ensure that we were not missing anything. I did contact [facility] Transplant Hepatology today and spoke with Dr. Hui who was pv design and installation technician for [facility]'s Gastrointestinal service. Though she is not a transplant whiteprinting machine operator, she did recommend checking a direct bilirubin today and to look for other sources of elevations of the bilirubin including drugs that the patient has taken including antibiotics in the recent past. Dr. Hui felt that the window for using corticosteroids for alcoholic hepatitis had passed and this had initially been held due to the fear that the patient had SBP, and therefore, this will not be started at present. I will await findings from the direct bilirubin level as well as hepatic Doppler studies. If the patient's condition worsens, she should be transferred to [facility] and they would be happy to take her, though there is no acute need for her transfer at this time as per Dr. Hui. As I am currently not pv design and installation technician, I will resume care of the patient directly tomorrow. I did not examine her today as I am away from the hospital, though I did have a remote access via computer to her labs and radiographic studies. I will make further recommendations following further evaluation. Once again, thanks for allowing me to participate in the care of this patient. If you have any further questions, please do not hesitate in contacting me.
--- NOTE | 2018-09-12 18:36 | Ultrasound Report ---
US duplex portal hepatic veins CLINICAL HISTORY: Ascites cirrhosis COMPARISON STUDY: No previous studies for comparison. FINDINGS: The liver demonstrates heterogeneous echotexture consistent with history of cirrhosis. Ther e is borderline splenomegaly. There is upper abdominal ascites. The hepatic artery is patent with a peak systolic velocity 40 cm/s. The hepatic veins are patent with normal directional flow. There is hepatofugal flow within the portal veins. The splenic vein demonstrates normal directional f low. There is near absent flow The lateral of the splenoportal confluence. No thrombus is visualized. IMPRESSION: 1. Suspected hepatic cirrhosis 2. Upper abdominal ascites 3. Patent hepatic veins 4. No evidence of portal vein thrombus. There is reversed flow within the portal veins indicating por drake venous hypertension Electronically signed by: Geoffrey Huffman M.D. 09/12/2018 6:34 PM
[2018-09-12] MEDS: DOCUSATE SODIUM 100 MG CAP PO SCH ×2 (18:42→21:22)
[2018-09-13 06:10] LABS: Hemoglobin 13.9 g/dL (12.0-16.0); Mean Corpuscular Hgb Conc 35.6 g/dL (32-36); Mean Corpuscular Volume 96.3 fL (80-100); Platelet Count 91 K/uL (130-400); RDW Coefficient of Variation 14.4 % (11.5-14.5); RDW Standard Deviation 50.6 fL (36.4-46.3); Red Blood Count 4.05 M/uL (4.2-5.4); White Blood Count 34.05 K/uL (4.8-10.8)
[2018-09-13 06:16] LABS: INR 1.5 (0.9-1.1); Prothrombin Time 15.3 Seconds (9.0-12.0)
[2018-09-13 07:05] LABS: Alanine Aminotransferase 40 U/L (12-78); Albumin Level 2.5 gm/dl (3.4-5.0); Alkaline Phosphatase 387 U/L (45-117); Aspartate Aminotransferase 111 U/L (15-37); Bilirubin,Total 24.4 mg/dl (0.2-1); Blood Urea Nitrogen 24 mg/dl (7-18); Calcium 8.8 mg/dl (8.5-10.1); Carbon Dioxide 23 mmol/L (21-32); Chloride 94 mmol/L (98-107); Glucose 93 mg/dl (70-99); Magnesium 1.9 mg/dl (1.8-2.4); Sodium 128 mmol/L (136-145)
[2018-09-13] MEDS: DOCUSATE SODIUM 100 MG CAP PO SCH ×2 (07:55→20:21)
[2018-09-13] MEDS: FUROSEMIDE 40 MG TAB PO SCH (07:55)
[2018-09-13] MEDS: SPIRONOLACTONE 100 MG TAB PO SCH (07:55)
[2018-09-13] MEDS: MoRPHine SULFATE 2 MG/ML CARP IV PRN ×3 (09:05→20:24)
--- NOTE | 2018-09-13 14:44 | Gastroenterology Progress Note ---
Date of Service September 13, 2018 Assessment & Plan (1) Cirrhosis of liver with ascites: Patient is a 53 yo female with decompensated alcoholic cirrhosis in the setting of suspected SBP which was treated with IV antibiotics with persistently elevated WBC and TB. -Transplant hepatology from [facility] has been made aware of patient's current status. -Continue Lasix & Aldactone with a 40:100 ratio respectively -Continue to monitor CMP and INR. -Alcohol abstinence as ongoing use will potentially preclude transplant candidacy. -Continue supportive care. Supervising Physician Co-Signing Physician Notes Agree with SANGEETHA Lopez as above Gen: Chronic ill-appearing, obvious jaundice Abd: Soft, distended, tender throughout Continue supportive care Discussed case with Dr. Newell from [facility] yesterday Will need followup with Transplant hepatology upon discharge Subjective Patient with persistent hyperbilirubinemia and leukocytosis. WBC this morning was noted to be 34.05 and TB 2.4. Despite this, she remains relatively stable in regard to symptoms with only very mild pruritus and minimal abdominal discomfort. No n/v, lower extremity edema or confusion. Most recent INR was 1.5. Unable to calculate an exact MELD as creatinine is not measurable in the setting of icterus. Review of Systems Review of Systems: All systems reviewed & are unremarkable except as noted in HPI & below Physical Exam Eyes: sclera icteric bilaterally Respiratory: normal respiratory effort, lungs clear to auscultation Cardiovascular: Rate/Rhythm: regular rate and regular rhythm Gastrointestinal (Abdomen): Inspection/Auscultation: + abdomen distended and n ormal bowel sounds Percussion/Palpation: + abdomen tender (diffusely) and abdomen soft Musculoskeletal: Gait: normal gait Psychiatric: A+Ox3, euthymic affect Results & Data Vital Signs (Past 12 Hours) Vital Signs Temp Pulse Resp BP Pulse Ox 09/13/18 14:35 36.7 C 103 H 18 117/77 91 09/13/18 07:37 36.5 C 99 H 18 116/79 94 Laboratory Results Abnormal lab results 09/12/18 09/13/18 09/13/18 Range/Units 15:01 05:54 05:54 WBC 34.05 H* (4.8-10.8) K/uL RBC 4.05 L (4.2-5.4) M/uL MCH 34.3 H (25-34) pg RDW Std Deviation 50.6 H (36.4-46.3) fL Plt Count 91 L (130-400) K/uL MPV 13.0 H (7.4-10.4) fL PT 15.3 H (9.0-12.0) Seconds INR 1.5 H (0.9-1.1) Sodium (136-145) mmol/L Chloride (98-107) mmol/L BUN (7-18) mg/dl Total Bilirubin (0.2-1) mg/dl Direct Bilirubin 20.3 H (0-0.2) mg/dl AST (15-37) U/L Alkaline Phosphatase (45-117) U/L Albumin (3.4-5.0) gm/dl 09/13/18 Range/Units 05:54 WBC (4.8-10.8) K/uL RBC (4.2-5.4) M/uL MCH (25-34) pg RDW Std Deviation (36.4-46.3) fL Plt Count (130-400) K/uL MPV (7.4-10.4) fL PT (9.0-12.0) Seconds INR (0.9-1.1) Sodium 128 L (136-145) mmol/L Chloride 94 L (98-107) mmol/L BUN 24 H (7-18) mg/dl Total Bilirubin 24.4 H (0.2-1) mg/dl Direct Bilirubin (0-0.2) mg/dl AST 111 H (15-37) U/L Alkaline Phosphatase 387 H (45-117) U/L Albumin 2.5 L (3.4-5.0) gm/dl (1) Cirrhosis of liver with ascites Hepatic cirrhosis type: alcoholic cirrhosis Qualified Code(s): K70.31 - Alcoholic cirrhosis of liver with ascites
--- NOTE | 2018-09-13 20:24 | Infectious Disease Progress Nt ---
Date of Service September 13, 2018 Assessment & Plan (1) Spontaneous bacterial peritonitis: 53-year-old female with end-stage liver disease from alcoholic cirrhosis, admitted with abdominal pain and marked leukocytosis. Although paracentesis findings not consistent with peritonitis, patient has been on antibiotics prior to obtaining specimen. Significance of increase in white count of unclear significance given clinical improvement. May need to consider repeat paracentesis. Will discuss. Subjective Patient seen in follow-up for persistent leukocytosis. White count up a bit today. No change points. Still with abdominal pain, mild pruritus. No fever. Review of Systems Review of Systems: All systems reviewed & are unremarkable except as noted in HPI & below Physical Exam Constitutional: WD/WN, vitals as above well nourished, + ill appearing and + thin; no acute distress Eyes: PERRL, conjunctivae normal, anicteric sclerae + scleral abnormality (Icteric), PERRL and EOM intact bilaterally ENMT: external ear and nose normal, oropharynx normal Neck: trachea midline, no thyromegaly normal visual inspection Respiratory: normal respiratory effort, lungs clear to auscultation normal percussion; no respiratory distress Cardiovascular: RRR, no murmur, no edema Heart Sounds: no gallop and no cardiac rub Gastrointestinal (Abdomen): Inspection/Auscultation: + abdomen distended and normal bowel sounds Percussion/Palpation: + abdomen tender; no hepatosplenomegaly and no abdominal mass Musculoskeletal: no cyanosis or clubbing, extremities motor strength 5/5 Head/Neck/Chest: normocephalic, head atraumatic and neck supple Extremities: extremities normal to inspection Skin: no rashes, warm and dry Neurologic: moves all extremities; no focal motor deficits Psychiatric: A+Ox3, euthymic affect Lymphatic: no cervical or axillary lymphadenopathy no inguinal lymphadenopathy Results & Data Vital Signs (Past 12 Hours) Vital Signs Temp Pulse Resp BP Pulse Ox 09/13/18 14:35 36.7 C 103 H 18 117/77 91 Laboratory Results Short CBC 09/13/18 Range/Units 05:54 WBC 34.05 H* (4.8-10.8) K/uL Hgb 13.9 (12.0-16.0) g/dL Hct 39.0 (37-47) % Plt Count 91 L (130-400) K/uL [facility] 09/13/18 05:54 Sodium 128 L Potassium 4.0 Chloride 94 L Carbon Dioxide 23 BUN 24 H Creatinine Glucose 93 Calcium 8.8 Liver Function 09/13/18 Range/Units 05:54 Total Bilirubin 24.4 H (0.2-1) mg/dl AST 111 H (15-37) U/L ALT 40 (12-78) U/L Alkaline Phosphatase 387 H (45-117) U/L Albumin 2.5 L (3.4-5.0) gm/dl Diagnostic Findings Microbiology 09/08/18 13:52 Peritoneal Fluid Gram Stain - Final 09/08/18 13:52 Peritoneal Fluid Aerobic and Anaerobic Culture - Final No growth 09/09/18 09:34 Blood Aerobic Blood Culture - Preliminary No growth in Aerobic bottle after 48 hours. 09/09/18 09:34 Blood Anaerobic Blood Culture - Preliminary No growth in Anaerobic bottle after 48 hours. 09/09/18 09:44 Blood Aerobic Blood Culture - Preliminary No growth in Aerobic bottle after 48 hours. 09/09/18 09:44 Blood Anaerobic Blood Culture - Preliminary No growth in Anaerobic bottle after 48 hours. 09/04/18 15:28 Blood Aerobic Blood Culture - Final No growth in Aerobic bottle after 5 days. 09/04/18 15:28 Blood Anaerobic Blood Culture - Final No growth in Anaerobic bottle after 5 days. 09/04/18 15:28 Blood Aerobic Blood Culture - Final No growth in Aerobic bottle after 5 days. 09/04/18 15:28 Blood Anaerobic Blood Culture - Final No growth in Anaerobic bottle after 5 days. 09/04/18 Unknown Peritoneal Fluid Gram Stain - Final 09/04/18 Unknown Peritoneal Fluid Aerobic and Anaerobic Culture - Final No growth cc: ~ US duplex portal hepatic veins CLINICAL HISTORY: Ascites cirrhosis COMPARISON STUDY: No previous studies for comparison. FINDINGS: The liver demonstrates heterogeneous echotexture consistent with history of cirrhosis. There is borderline splenomegaly. There is upper abdominal ascites. The hepatic artery is patent with a peak systolic velocity 40 cm/s. The hepatic veins are patent with normal directional flow. There is hepatofugal flow within the portal veins. The splenic vein demonstrates normal directional flow. There is near absent flow The lateral of the splenoportal confluence. No thrombus is visualized. IMPRESSION: 1. Suspected hepatic cirrhosis 2. Upper abdominal ascites 3. Patent hepatic veins 4. No evidence of portal vein thrombus. There is reversed flow within the portal veins indicating portal venous hypertension Electronically signed by: Geoffrey Huffman M.D. 09/12/2018 6:34 PM
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
[2018-09-14] MEDS: MoRPHine SULFATE 2 MG/ML CARP IV PRN ×2 (08:27→19:27)
[2018-09-14] MEDS: SPIRONOLACTONE 100 MG TAB PO SCH (08:27)
[2018-09-14] MEDS: DOCUSATE SODIUM 100 MG CAP PO SCH ×2 (08:27→19:27)
[2018-09-14] MEDS: FUROSEMIDE 40 MG TAB PO SCH (08:27)
--- NOTE | 2018-09-14 14:30 | Gastroenterology Progress Note ---
Date of Service September 14, 2018 Assessment & Plan (1) Cirrhosis of liver with ascites: Patient is a 53 yo female with decompensated alcoholic cirrhosis in the setting of suspected SBP which was treated with IV antibiotics with persistently elevated WBC and TB and abdominal distention. -Diagnostic and therapeutic paracentesis today with fluid studies. -Continue Lasix & Aldactone with a 40:100 ratio respectively -Continue to monitor CMP and INR. -Alcohol abstinence as ongoing use will potentially preclude transplant candidacy. -Continue supportive care. Supervising Physician Co-Signing Physician Notes Agree with SANGEETHA Lopez as above Abd: Soft, NT, less distended (following paracentesis) Recommend increasing Aldactone to 200 mg by mouth daily Continue Lasix 40 mg by mouth daily Ascitic fluid studies pending 2 g Na restricted diet Continue supportive care Subjective Patient reports worsening abdominal distention and discomfort. Reviewed ID note. Recommended consideration of repeat paracentesis in regard to continued leukocytosis. Review of Systems Respiratory: no problem reported Cardiovascular: no problem reported Gastrointestinal: as per Subjective / HPI Integumentary: + pruritus and + yellowing of the skin Psychiatric: no problem reported Physical Exam Respiratory: normal respiratory effort, lungs clear to auscultation Cardiovascular: Rate/Rhythm: regular rate and regular rhythm Gastrointestinal (Abdomen): Inspection/Auscultation: + abdomen distended Percussion/Palpation: + abdomen tender and + abdomen firm Psychiatric: A+Ox3, euthymic affect Results & Data Vital Signs (Past 12 Hours) Vital Signs Temp Pulse Resp BP Pulse Ox 09/14/18 08:09 37.1 C 110 H 18 117/80 93 (1) Cirrhosis of liver with ascites Hepatic cirrhosis type: alcoholic cirrhosis Qualified Code(s): K70.31 - Alcoholic cirrhosis of liver with ascites
--- NOTE | 2018-09-14 15:45 | Ultrasound Report ---
ULTRASOUND GUIDED DIAGNOSTIC AND THERAPEUTIC PARACENTESIS CLINICAL HISTORY: hx ascites, worsened distention PROCEDURE: The risks, benefits, and alternatives to the procedure were discussed with the patient inc luding the risk of bleeding, infection and injury to adjacent structures. The patient agreed to the procedure and informed written consent was obtained. Following real-time ultrasound localization, the skin of the right lower quadrant was prepped and draped. Following local anesthesia with Xylocaine, the sheath paracentesis needle was inserted and approximately 2.7 liters of straw-colored fluid was r emoved by vacuum suction. The patient tolerated the procedure well and no immediate complications were evident. IMPRESSION: Ultrasound-guided paracentesis with removal of 2.7 liters of ascites. 1 L of ascites was sent to the laboratory as ordered. Electronically signed by: Guy Dyer M.D. 09/14/2018 3:44 PM
[2018-09-14 18:31] LABS: Appearance Peritoneal Fluid CLEAR; Color Peritoneal Fluid YELLOW; Mononuclear WBC Peritoneal 66.7 %; Polynuclear WBC Peritoneal 33.3 %; RBC Peritoneal Fluid (A) < 3000 /uL; WBC Peritoneal Fluid (A) 147 /ul (0-300)
--- NOTE | 2018-09-14 20:25 | Infectious Disease Progress Nt ---
Date of Service September 14, 2018 Assessment & Plan (1) Spontaneous bacterial peritonitis: Patient with end-stage disease with persistent leukocytosis without other obvious localizing findings. Will discuss further management with all involved. Will follow. Subjective Patient reports worsening abdominal distention and discomfort. Repeat paracentesis, not indicative of infection. Cultures. White count slightly increased today. No other new specific complaints. Review of Systems Review of Systems: All systems reviewed & are unremarkable except as noted in HPI & below Physical Exam Constitutional: WD/WN, vitals as above well nourished, + ill appearing and + thin; no acute distress Eyes: PERRL, conjunctivae normal, anicteric sclerae + scleral abnormality (Icteric), PERRL and EOM intact bilaterally ENMT: external ear and nose normal, oropharynx normal Neck: trachea midline, no thyromegaly normal visual inspection Respiratory: normal respiratory effort, lungs clear to auscultation normal percussion; no respiratory distress Cardiovascular: RRR, no murmur, no edema Heart Sounds: no gallop and no cardiac rub Gastrointestinal (Abdomen): Inspection/Auscultation: + abdomen distended and normal bowel sounds Percussion/Palpation: + abdomen tender; no hepatosplenomegaly and no abdominal mass Musculoskeletal: no cyanosis or clubbing, extremities motor strength 5/5 Head/Neck/Chest: normocephalic, head atraumatic and neck supple Extremities: extremities normal to inspection Skin: no rashes, warm and dry Neurologic: moves all extremities; no focal motor deficits Psychiatric: A+Ox3, euthymic affect Lymphatic: no cervical or axillary lymphadenopathy no inguinal lymphadenopathy Results & Data Laboratory Results Laboratory Results - last 48 hr 09/11/18 09/12/18 09/13/18 10:38 07:41 05:54 WBC 34.05 H* RBC 4.05 L Hgb 13.9 Hct 39.0 MCV 96.3 MCH 34.3 H MCHC 35.6 RDW Std Deviation 50.6 H RDW Coeff of [place]inn 14.4 Plt Count 91 L MPV 13.0 H PT INR Sodium Potassium Chloride Carbon Dioxide Anion Gap BUN Creatinine Est Cr Clr Drug Dosing Est GFR ( Amer) Est GFR (Non-Af Amer) BUN/Creatinine Ratio Glucose Calcium Magnesium Total Bilirubin AST ALT Alkaline Phosphatase Total Protein Albumin Globulin Albumin/Globulin Ratio Peritoneal Color Peritoneal Appearance Peritoneal WBC Peritoneal RBC Mononuclear WBCs % Polynuclear WBCs % Peritoneal Tot Protein Peritoneal Albumin Miscellaneous Test REPORT REPORT Miscellaneous Test 2 REPORT REPORT 09/13/18 09/13/18 09/13/18 05:54 05:54 07:32 WBC RBC Hgb Hct MCV MCH MCHC RDW Std Deviation RDW Coeff of [place] Plt Count MPV PT 15.3 H INR 1.5 H Sodium 128 L Potassium 4.0 Chloride 94 L Carbon Dioxide 23 Anion Gap 10.0 BUN 24 H Creatinine Est Cr Clr Drug Dosing TNP Est GFR ( Amer) TNP Est GFR (Non-Af Amer) Not Reportable BUN/Creatinine Ratio TNP Glucose 93 Calcium 8.8 Magnesium 1.9 Total Bilirubin 24.4 H AST 111 H ALT 40 Alkaline Phosphatase 387 H Total Protein Albumin 2.5 L Globulin TNP Albumin/Globulin Ratio TNP Peritoneal Color Peritoneal Appearance Peritoneal WBC Peritoneal RBC Mononuclear WBCs % Polynuclear WBCs % Peritoneal Tot Protein Peritoneal Albumin Miscellaneous Test REPORT Miscellaneous Test 2 REPORT 09/14/18 09/14/18 09/14/18 Unknown Unknown Unknown WBC RBC Hgb Hct MCV MCH MCHC RDW Std Deviation RDW Coeff of [place] Plt Count MPV PT INR Sodium Potassium Chloride Carbon Dioxide Anion Gap BUN Creatinine Est Cr Clr Drug Dosing Est GFR ( Amer) Est GFR (Non-Af Amer) BUN/Creatinine Ratio Glucose Calcium Magnesium Total Bilirubin AST ALT Alkaline Phosphatase Total Protein Albumin Globulin Albumin/Globulin Ratio Peritoneal Color YELLOW Peritoneal Appearance CLEAR Peritoneal WBC 147 Peritoneal RBC < 3000 Mononuclear WBCs % 66.7 Polynuclear WBCs % 33.3 Peritoneal Tot Protein 0.6 Peritoneal Albumin < 0.6 Miscellaneous Test Miscellaneous Test 2 Diagnostic Findings Microbiology 09/09/18 09:44 Blood Aerobic Blood Culture - Final No growth in Aerobic bottle after 5 days. 09/09/18 09:44 Blood Anaerobic Blood Culture - Final No growth in Anaerobic bottle after 5 days. 09/09/18 09:34 Blood Aerobic Blood Culture - Final No growth in Aerobic bottle after 5 days. 09/09/18 09:34 Blood Anaerobic Blood Culture - Final No growth in Anaerobic bottle after 5 days. 09/08/18 13:52 Peritoneal Fluid Gram Stain - Final 09/08/18 13:52 Peritoneal Fluid Aerobic and Anaerobic Culture - Final No growth 09/04/18 15:28 Blood Aerobic Blood Culture - Final No growth in Aerobic bottle after 5 days. 09/04/18 15:28 Blood Anaerobic Blood Culture - Final No growth in Anaerobic bottle after 5 days. 09/04/18 15:28 Blood Aerobic Blood Culture - Final No growth in Aerobic bottle after 5 days. 09/04/18 15:28 Blood Anaerobic Blood Culture - Final No growth in Anaerobic bottle after 5 days. 09/04/18 Unknown Peritoneal Fluid Gram Stain - Final 09/04/18 Unknown Peritoneal Fluid Aerobic and Anaerobic Culture - Final No growth
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
[2018-09-15] MEDS: DOCUSATE SODIUM 100 MG CAP PO SCH (08:47)
[2018-09-15] MEDS: FUROSEMIDE 40 MG TAB PO SCH (08:47)
[2018-09-15] MEDS ORDERED: SPIRONOLACTONE 100 MG TAB PO SCH (09:00)
--- NOTE | 2018-09-15 09:38 | Gastroenterology Progress Note ---
Date of Service September 15, 2018 Assessment & Plan (1) Cirrhosis of liver with ascites: Patient is a 53 yo female with decompensated alcoholic cirrhosis in the setting of suspected SBP which was treated with IV antibiotics with persistently elevated WBC and TB and abdominal distention. -Okay for discharge from GI perspective with close outpatient follow up next week. -Continue Lasix & Aldactone with a 40:200 ratio respectively -Alcohol abstinence as ongoing use will potentially preclude transplant candidacy. -May require outpatient therapeutic paracentesis which can be arranged through our office. Supervising Physician Co-Signing Physician Notes Agree with SANGEETHA Lopez as above Abd: Soft, NT, distended Patient will be discharged today Recommend followup in our office next week on Thursday or Thursday, and she will call our office for Appt. Check CMP, CBC and PT/INR prior to office appt. Recommend followup with Dr. Kat at [facility] within 2 weeks Continue current therapy Subjective Patient verbalizes feeling less abdominal pain s/p paracentesis yesterday. She did have 2.7 liters ascitic fluid removed yesterday. Peritoneal fluid negative for SBP with a WBC of 147. Aldactone was increased to 200 mg daily. She just received the initial dose this morning. No other acute issues. Minimal pruritus. Verbalizes desire to go home. Review of Systems Respiratory: no problem reported Cardiovascular: no problem reported Gastrointestinal: as per Subjective / HPI Psychiatric: no problem reported Physical Exam Eyes: EOM intact bilaterally sclera icteric bilaterally Respiratory: normal respiratory effort, lungs clear to auscultation Cardiovascular: Rate/Rhythm: regular rate and regular rhythm Gastrointestinal (Abdomen): Inspection/Auscultation: + abdomen distended and normal bowel sounds Percussion/Palpation: abdomen soft Psychiatric: A+Ox3, euthymic affect Results & Data Vital Signs (Past 12 Hours) Vital Signs Temp Pulse Resp BP Pulse Ox 09/15/18 06:59 36.8 C 103 H 18 110/73 95 09/14/18 23:59 36.7 C 98 H 19 112/76 94 (1) Cirrhosis of liver with ascites Hepatic cirrhosis type: alcoholic cirrhosis Qualified Code(s): K70.31 - Alcoholic cirrhosis of liver with ascites
[2018-09-15 11:52] LABS: Hematocrit (blood only) 37.4 % (37-47); Mean Corpuscular Hgb Conc 37.4 g/dL (32-36); Mean Corpuscular Volume 94.4 fL (80-100); Mean Platelet Volume 12.3 fL (7.4-10.4); Platelet Count 122 K/uL (130-400); RDW Coefficient of Variation 14.1 % (11.5-14.5); RDW Standard Deviation 48.2 fL (36.4-46.3); Red Blood Count 3.96 M/uL (4.2-5.4); White Blood Count 39.15 K/uL (4.8-10.8)
[2018-09-15 12:02] LABS: Basophils # (auto) 0.04 K/uL (0-0.2); Basophils % (auto) 0.1 %; Echinocytes 2+; Eosinophils # (auto) 0.01 K/uL (0-0.5); Immature Granulocytes # (auto) 0.25 K/uL (0.00-0.02); Immature Granulocytes % (auto) 0.6 %; Lymphocytes # (auto) 0.62 K/uL (1.2-3.4); Lymphocytes % (auto) 1.6 %; Monocytes # (auto) 3.07 K/uL (0.11-0.59); Monocytes % (auto) 7.8 %; Neutrophils # (auto) 35.16 K/uL (1.4-6.5); Neutrophils % (auto) 89.9 %
[2018-09-15 12:30] LABS: Alanine Aminotransferase 41 U/L (12-78); Albumin Level 2.4 gm/dl (3.4-5.0); Alkaline Phosphatase 415 U/L (45-117); Aspartate Aminotransferase 123 U/L (15-37); Bilirubin,Total 23.8 mg/dl (0.2-1); Blood Urea Nitrogen 32 mg/dl (7-18); Calcium 8.5 mg/dl (8.5-10.1); Carbon Dioxide 20 mmol/L (21-32); Chloride 89 mmol/L (98-107); Glucose 108 mg/dl (70-99); Potassium 3.8 mmol/L (3.5-5.1); Sodium 122 mmol/L (136-145)
[2018-09-15] MEDS: MoRPHine SULFATE 2 MG/ML CARP IV PRN (16:17)
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
--- NOTE | 2018-09-22 15:18 | Coding Query ---
CODING QUERY To promote full compliance with coding requirements relating to patient care, provider participation is requested in all cases of photo equipment technician uncertainty. Please assist us with the question(s) below: Coding Question(s): Please clarify if spontaneous bacterial peritonitis was ruled out. It was not ruled out. It is the main problem on the list: SBP. Physician's Response(s): Thank you Agnieszka Coleman Principal Diagnosis: "that condition established after study, to be chiefly responsible for occasioning the admission of the patient to the hospital for care." Co-Existing Principal Diagnosis: "when two or more diagnoses equally meet the criteria for principal diagnosis as determined by the circumstances of admission, diagnostic work up, and/or therapy provided, and the Alphabetic Index, Tabular List, or another coding guideline does not provide sequencing direction, any one of the diagnoses may be sequenced first." "When the physician has documented what appears to be a current diagnosis in the body of the record, but has not included the diagnosis in the final diagnostic statement, the physician should be asked whether the diagnosis should be added." (Source Coding [facility] 2 QTR90. p3-4) [place]
== END 2018-09-15 18:18 | disposition home or self-care (01) | DRG 372 ==
LOC: ED 13:59 → 2S 16:19 → SUATTDRO 16:19 → 2S 17:46 → 2N 09-10 13:12

== ENCOUNTER 2022-03-21 22:52 | Inpatient (IN) ==
[2022-03-21] MEDS ORDERED: MULTI-VITAMIN INFUSION 10 ML, THIAMINE HCL 100 MG, FOLIC ACID 1 MG in SODIUM CHLORIDE 0... IV ONE (23:23)
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
[2022-03-21 23:47] LABS: Albumin Globulin Ratio 1.1 (0.9-2); Albumin Level 3.6 gm/dl (3.4-5.0); BUN Creatinine Ratio 8.2 (10-20); Calcium 9.3 mg/dl (8.5-10.1); Creatinine Clr Calc Pharmacy 61.9 ml/min; Est GFR (African American) 89.4 ml/min; Est GFR (Non-African American) 77.1 ml/min; Globulin 3.3 gm/dl (2.5-4.0); Magnesium 1.7 mg/dl (1.7-2.4); Phosphorus 2.3 mg/dl (2.5-4.9); Potassium 3.4 mmol/L (3.5-5.1); Total Protein 6.9 gm/dl (6.0-8.3)
[2022-03-22 00:20] LABS: Basophils # (auto) 0.01 K/uL (0-0.2); Basophils % (auto) 0.1 %; Hematocrit (blood only) 41.1 % (34.1-44.9); Hemoglobin 14.3 g/dl (12.0-16.0); Immature Granulocytes # (auto) 0.04 K/uL (0.00-0.02); Immature Granulocytes % (auto) 0.6 %; Lymphocytes # (auto) 0.42 K/uL (1.2-3.4); Lymphocytes % (auto) 6.1 %; Mean Corpuscular Hgb Conc 34.8 g/dL (32.0-36.0); Mean Corpuscular Volume 100.7 fL (80.0-100.0); Mean Platelet Volume 11.5 fL (9.4-12.3); Monocytes # (auto) 0.44 K/uL (0.24-0.82); Monocytes % (auto) 6.4 %; Neutrophils % (auto) 86.8 %; Platelet Count 44 K/uL (130-400); Platelet Estimate Decreased (Normal); RDW Coefficient of Variation 13.4 % (11.5-14.5); RDW Standard Deviation 49.9 fL (36.4-46.3); Red Blood Count 4.08 M/uL (3.93-5.22); White Blood Count 6.91 K/ul (4.8-10.8)
[2022-03-22] MEDS ORDERED: LORazepam 2 MG/1 ML VIAL IV STA (01:08)
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
[2022-03-22 01:36] LABS: INR 1.3 (0.9-1.1); Partial Thromboplastin Time 27.8 Seconds (21.0-31.0)
[2022-03-22] MEDS ORDERED: GABAPENTIN 1200MG ALCOHOL WITHDRAWAL LOAD PO ONE (01:45)
[2022-03-22] MEDS ORDERED: GABAPENTIN 600 MG TAB PO ONE ×2 (01:45→02:19)
[2022-03-22] MEDS ORDERED: GABAPENTIN 1200MG ALCOHOL WITHDRAWAL LOAD PO STA (02:19)
[2022-03-22] MEDS ORDERED: ONDANSETRON INJ 2 MG/ML 2 ML VIAL IV PRN (02:19)
[2022-03-22] MEDS ORDERED: BENZONATATE 100 MG CAPSULE PO PRN (02:19)
[2022-03-22] MEDS ORDERED: Ativan IV Alcohol Withdrawal--Active Protocol IV PRN (02:19)
[2022-03-22] MEDS ORDERED: LORazepam 2 MG/1 ML VIAL IV PRN ×3 (02:19)
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
[2022-03-22] MEDS: NSS + 20MEQ KCL 20 MEQ/1,000 ML BAG IV SCH ×2 (04:52→15:59)
[2022-03-22] MEDS: LEVOTHYROXINE SODIUM 25 MCG TABLET PO SCH (05:37)
[2022-03-22] MEDS ORDERED: GABAPENTIN 600 MG TAB PO SCH ×2 (07:30→21:30)
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
--- NOTE | 2022-03-22 07:54 | XRay Report ---
XR ankle RT min 3V routine CLINICAL HISTORY: Right ankle pain. COMPARISON STUDY: Right ankle 08/03/2020. FINDINGS: Lateral soft tissue swelling within the right ankle. Mildly displaced oblique fracture with in the distal right fibula which demonstrates up to 3 mm of posterior displacement. The distal tibia is intact. No dislocation. [place]ssific density adjacent to the lateral malleolus is consistent with an ol d avulsion injury. IMPRESSION: Mildly displaced oblique fracture within the distal right fibula. ACT 112: Negative or not required by law. Electronically signed by: Jay Ricks M.D. 03/22/2022 7:53 AM
[2022-03-22 08:23] LABS: Hematocrit (blood only) 34.8 % (34.1-44.9); Hemoglobin 12.4 g/dl (12.0-16.0); Mean Corpuscular Hemoglobin 35.2 pg (25.0-34.0); Mean Corpuscular Hgb Conc 35.6 g/dL (32.0-36.0); Mean Corpuscular Volume 98.9 fL (80.0-100.0); Mean Platelet Volume 12.4 fL (9.4-12.3); Platelet Count 38 K/uL (130-400); RDW Coefficient of Variation 13.4 % (11.5-14.5); RDW Standard Deviation 48.9 fL (36.4-46.3); Red Blood Count 3.52 M/uL (3.93-5.22); White Blood Count 8.61 K/ul (4.8-10.8)
[2022-03-22 08:40] LABS: Basophils # (auto) 0.01 K/uL (0-0.2); Basophils % (auto) 0.1 %; Immature Granulocytes # (auto) 0.04 K/uL (0.00-0.02); Immature Granulocytes % (auto) 0.5 %; Lymphocytes # (auto) 1.12 K/uL (1.2-3.4); Monocytes # (auto) 1.06 K/uL (0.24-0.82); Monocytes % (auto) 12.3 %; Neutrophils # (auto) 6.38 K/uL (1.4-6.5); Neutrophils % (auto) 74.1 %
[2022-03-22 08:50] LABS: INR 1.4 (0.9-1.1); Prothrombin Time 15.1 Seconds (9.0-12.0)
[2022-03-22 08:51] LABS: Albumin Globulin Ratio 1.3 (0.9-2); BUN Creatinine Ratio 9.5 (10-20); Bilirubin,Total 4.2 mg/dl (0.2-1.0); Calcium 7.5 mg/dl (8.5-10.1); Creatinine Clr Calc Pharmacy 71.1 ml/min; Est GFR (African American) 105.7 ml/min; Est GFR (Non-African American) 91.2 ml/min; Globulin 2.4 gm/dl (2.5-4.0); Total Protein 5.4 gm/dl (6.0-8.3)
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
[2022-03-22] MEDS: THIAMINE HCL 100 MG TAB PO SCH (09:54)
[2022-03-22] MEDS: GABAPENTIN 600 MG TAB PO SCH ×3 (09:54→20:54)
[2022-03-22] MEDS: FUROSEMIDE 20 MG TAB PO SCH (09:55)
[2022-03-22] MEDS: FOLIC ACID 1 MG TAB PO SCH (09:55)
[2022-03-22] MEDS: SERTRALINE HCL 50 MG TABLET PO SCH (09:55)
[2022-03-22] MEDS: busPIRone 5 MG TAB PO SCH ×3 (09:56→20:54)
[2022-03-22] MEDS: SPIRONOLACTONE 25 MG TAB PO SCH (09:56)
[2022-03-22] MEDS ORDERED: POTASSIUM PHOS 3 MMOL/1 ML INFUSION IV STA (10:04)
[2022-03-22] MEDS ORDERED: POTASSIUM CHLORIDE CRTAB 20 MEQ TABCR PO STA (10:04)
[2022-03-22] MEDS ORDERED: POTASSIUM PHOSPHATE 15 MMOL in SODIUM CHLORIDE 0.9% 250 ML IV ONE (11:00)
[2022-03-22] MEDS: MAGNESIUM SULFATE / D5W 1 GM/100 ML BAG IV SCH ×2 (11:07→13:20)
[2022-03-22 18:37] LABS: BUN Creatinine Ratio 7.5 (10-20); Calcium 7.6 mg/dl (8.5-10.1); Creatinine Clr Calc Pharmacy 56.5 ml/min; Est GFR (African American) 80.2 ml/min; Est GFR (Non-African American) 69.2 ml/min; Potassium 3.7 mmol/L (3.5-5.1)
[2022-03-22] MEDS ORDERED: KETOROLAC TROMETHAMINE 15 MG/ML VIAL IV ONE (20:15)
[2022-03-22] MEDS: LACTULOSE SYRUP 20 GM/30 ML UDC PO SCH (20:54)
[2022-03-23] MEDS: NSS + 20MEQ KCL 20 MEQ/1,000 ML BAG IV SCH ×2 (01:48→11:25)
[2022-03-23] MEDS: LEVOTHYROXINE SODIUM 25 MCG TABLET PO SCH (05:54)
[2022-03-23] MEDS: GABAPENTIN 600 MG TAB PO SCH ×2 (05:54→14:08)
[2022-03-23 06:57] LABS: INR 1.5 (0.9-1.1); Partial Thromboplastin Ratio 1.1; Partial Thromboplastin Time 29.9 Seconds (21.0-31.0); Prothrombin Time 15.6 Seconds (9.0-12.0)
[2022-03-23 07:01] LABS: Basophils # (auto) 0.02 K/uL (0-0.2); Basophils % (auto) 0.3 %; Eosinophils # (auto) 0.02 K/uL (0-0.50); Eosinophils % (auto) 0.3 %; Hematocrit (blood only) 36.9 % (34.1-44.9); Hemoglobin 12.5 g/dl (12.0-16.0); Immature Granulocytes # (auto) 0.02 K/uL (0.00-0.02); Immature Granulocytes % (auto) 0.3 %; Lymphocytes # (auto) 1.71 K/uL (1.2-3.4); Lymphocytes % (auto) 27.8 %; Mean Corpuscular Hemoglobin 35.1 pg (25.0-34.0); Mean Corpuscular Hgb Conc 33.9 g/dL (32.0-36.0); Mean Corpuscular Volume 103.7 fL (80.0-100.0); Mean Platelet Volume 12.5 fL (9.4-12.3); Monocytes # (auto) 0.58 K/uL (0.24-0.82); Monocytes % (auto) 9.4 %; Neutrophils % (auto) 61.9 %; Platelet Count 39 K/uL (130-400); Platelet Estimate Decreased (Normal); RDW Coefficient of Variation 13.9 % (11.5-14.5); RDW Standard Deviation 53.1 fL (36.4-46.3); Red Blood Count 3.56 M/uL (3.93-5.22); Toxic Vacuolation 1+; White Blood Count 6.15 K/ul (4.8-10.8)
[2022-03-23] MEDS ORDERED: oxyCODONE/ACETAMINOPHEN 5mg/325mg TAB PO STA (07:06)
--- NOTE | 2022-03-23 07:06 | Hospitalist Progress Note ---
Date of Service March 23, 2022 Assessment & Plan (1) Alcohol withdrawal seizure: Plan: 56yo female with history of EtOH abuse, alcoholic cirrhosis presents with witnessed seizure from home. Presume alcohol withdrawal seizure - patient reports drinking 4 glasses of wine daily, last drink was 03/20/21. EtOH level on admission=0. She had mild hyponatremia and hypokalemiawhich was repleted on gabapentin tapering dose, and low dose librium. librium added 03/23 for continued symptoms -AWSS with Ativan PRN -Continue Thiamine and Folic acid. is macrocytitic case management has given information of out pt alcohol rehab (2) Closed right fibular fracture: Plan: Patient with mildly displaced fracture of the right distal fibula - atraumatic fracture which occurred approximately 1 week ago. NV intact. Pain is well controlled at present without use of medication. -Orthopedic surgery consult recommends walking boot (3) Hepatic cirrhosis: Plan: Patient with hepatic cirrhosis secondary to EtOH abuse, s/p TIPS procedure. She follows with [facility] Hepatology. Has been fairly stable. No ascites at present. No confusion, asterixis or evidence of hepatic encephalopathy. Liver values are near baseline to include PT of 14, INR of 1.3, Na of 135, Tbili of 5. MELD=17 -Continue Lasix 20mg po daily -Continue [id number] mg po qAM restarted lactulose 03/22/21 -Followup with Hepatology outpatient as instructed (4) Alcohol abuse: Plan: Patient with ongoing EtOH abuse. Is trying to quit. -AWSS per protocol (5) Thrombocytopenia: Plan: Platelets of 38 in setting of EtOH cirrhosis. No active bleeding -Continue to monitor (6) Anxiety: Plan: Chronic -Continue Buspirone and Sertraline (7) Hypothyroid: Plan: Chronic -Continue Synthroid 25mcg po daily Admission and Anticipated Discharge Date Admission Date: March 22, 2022 Subjective Patient seen and examined at bedside. Briefly, patient is a 56yo female with history of alcoholic cirrhosis s/p TIPS procedure. She follows with [facility] hepatology. Patient reports drinking 4-5 glasses of wine nightly. Last drink on 03/20/21. She presented to the ER last night after a witnessed seizure of 4-5 minutes in duration. She was administered a banana bag, Ativan x 1mg IV and Gabapentin load. still with symptoms in the afternoon 03/23/21 adding low dose librium. In regards to her right ankle, she has a distal fibular fracture, ortho recommended walking boot T Review of Systems Review of Systems: Mild distress and fatigue no headache, no visual changes no speech or swallowing issues no chest pain, pressure or palpitations no shortness of breath, cough or wheezes no abdominal pain, nausea or vomiting, diarrhea or constipation no dysuria, hematuria or frequency Patient has some persistent tenderness in the lateral distal right leg dressing in place no back pain, CVA tenderness or radicular pain no bruising, bleeding or rashes no focal signs of weakness or numbness or altered sensation Patient did not unemotional roller coaster feeling anxiety depression and tearfulness all at the same time Physical Exam Physical Exam: The patient appeared stable Vital signs as documented. Lungs are clear to auscultation and appear unlabored Cardiac exam, Rhythm is regular.. No murmurs, rubs or gallops. Abdominal exam reveals normal bowel sounds, soft non tender, no masses Extremities right leg is wrapped to the knee there is some tenderness to exam good distal pulses capillary refill. Neurologic exam is alert and oriented, no focal loss of strength or sensation Skin is without bruises or rashes Psychologically is with concerns for anxiety & depression. Results & Data Results & Data ([facility]) Vital Signs (Past 12 Hours) Vital Signs Temp Pulse Pulse Resp BP Pulse Ox O2 Del Method 03/23/22 02:47 98.1 F 70 16 122/74 96 Room Air 03/23/22 00:03 78 03/22/22 22:12 98.2 F 75 18 134/81 97 Room Air PG Care Time/CCT Total # of Minutes Spent Total Time Spent with Patient: Total time spent is greater than 50% in coordination of care (as documented) at patient's floor/unit and/or counseling patient: Coding Level of Care Code 39541 SUB INP/OBS CARE 3/50MIN Diagnoses Alcohol withdrawal seizure F10.939; R56.9 Closed right fibular fracture S82.401A Hepatic cirrhosis K74.60 Alcohol abuse F10.10 Thrombocytopenia D69.6 Anxiety F41.9 Hypothyroid E03.9
[2022-03-23 07:08] LABS: Albumin Globulin Ratio 1.3 (0.9-2); Albumin Level 2.9 gm/dl (3.4-5.0); BUN Creatinine Ratio 9.1 (10-20); Bilirubin,Total 3.9 mg/dl (0.2-1.0); Calcium 7.4 mg/dl (8.5-10.1); Creatinine Clr Calc Pharmacy 66.3 ml/min; Est GFR (African American) 100.7 ml/min; Est GFR (Non-African American) 86.9 ml/min; Globulin 2.3 gm/dl (2.5-4.0); Magnesium 1.8 mg/dl (1.7-2.4); Phosphorus 1.8 mg/dl (2.5-4.9); Potassium 4.1 mmol/L (3.5-5.1); Total Protein 5.2 gm/dl (6.0-8.3)
[2022-03-23] MEDS ORDERED: ACETAMINOPHEN 325 MG TAB PO ONE (07:10)
--- NOTE | 2022-03-23 07:20 | Discharge Summary ---
Date of Service March 24, 2022 Admission HPI Per Admitting Provider The patient is a 56-year-old female with a past medical history including alcoholic fatty liver, hepatic cirrhosis, hyperbilirubinemia, jaundice, ascites, alcohol abuse, history of subdural hematoma, thrombocytopenia, pancreatic cyst, hyponatremia and spontaneous bacterial peritonitis. As noted above, the patient had a seizure of approximately 4 to 5 minutes duration as observed by her . She has not had seizures before, and reports that she had her last alcohol intake around 24 hours ago. She also notes pain in her right ankle area that she initially noted when she heard a pop sound there about 1 week ago, and has been able to continue to walk on it since that time. Significant abnormal laboratories: Potassium 3.4, glucose 146, total bilirubin 5.0, AST 115, ALT 34, alkaline phosphatase 186, INR 1.3. X-ray shows a closed right distal fibular fracture. Principal Diagnosis alcohol associated seizure right distal fibular fracture Discharge Exam The patient appeared stable Vital signs as documented. Lungs are clear to auscultation and appear unlabored Cardiac exam, Rhythm is regular.. No murmurs, rubs or gallops. Abdominal exam reveals normal bowel sounds, soft non tender, no masses Extremities are nonedematous and both pedal pulses are normal. Neurologic exam is alert and oriented, no focal loss of strength or sensation Skin is without bruises or rashes Psychologically is without concerns for anxiety or depression. Discharge Data Allergies Allergy/AdvReac Type Severity Reaction Status Date / Time ciprofloxacin [From Cipro] Allergy Intermediate Rash Verified 03/21/22 23:31 nitrofurantoin Allergy Intermediate Rash Verified 03/21/22 23:31 [From Macrobid] mushroom AdvReac Intermediate Nausea Verified 03/21/22 23:31 Consultations 03/22/22 00:36 ED Decision to Admit Stat 03/22/22 06:45 Consult Orthopedic Surgery Routine Hospital Course (1) Alcohol withdrawal seizure: 56yo female with history of EtOH abuse, alcoholic cirrhosis presents with witnessed seizure from home. Presume alcohol withdrawal seizure - patient reports drinking 4 glasses of wine daily, last drink was 03/20/21. EtOH level on admission=0. She had mild hyponatremia and hypokalemia which was repleted Patient responded well to Librium treatment in addition to her gabapentin prescriptions for tapering doses of both were sent to [facility] pharmacy (2) Closed right fibular fracture: Patient with mildly displaced fracture of the right distal fibula - atraumatic fracture which occurred approximately 1 week ago. NV intact. Pain is well controlled at present without use of medication. -Orthopedic surgery consult recommends walking boot will have outpatient follow- up with them (3) Hepatic cirrhosis: Patient with hepatic cirrhosis secondary to EtOH abuse, s/p TIPS procedure. She follows with [facility] Hepatology. Has been fairly stable. No ascites at present. No confusion, asterixis or evidence of hepatic encephalopathy. Liver values are near baseline to include PT of 14, INR of 1.3, Na of 135, Tbili of 5. MELD=17 -Continue Lasix 20mg po daily -Continue [id number] mg po qAM restarted lactulose -Followup with Hepatology outpatient as instructed (4) Alcohol abuse: Patient with ongoing EtOH abuse. Is trying to quit. -Patient was given outpatient rehab center information (5) Thrombocytopenia: Platelets improved prior to discharge (6) Anxiety: Chronic -Continue Buspirone and Sertraline (7) Hypothyroid: Chronic -Continue Synthroid 25mcg po daily Total Time Total Time Spent Total Time Spent (In Minutes): It required greater than 30 minutes to prepare this patient for discharge Discharge Plan Discharge Items Patient Disposition: Home - Self-Care Reason For Visit: SEIZURE, ALCOHOL WITHDRAWAL Discharge Diagnosis: alcohol withdrawal seizure distal right fibuilae fracture Activity: Resume your previous activity Non-emergency contact: Primary Care Provider Call non-emergency contact if: your symptoms worsen Follow-up/Referrals: Elmer Diggs DO [Primary Care Provider] - 03/27/22 2:00 pm (HOSPITAL FOLLOW UP- [place] [facility]) Dimitri Ocampo M.D. [Physician] - 04/09/22 2:00 pm ([facility] FOLLOW UP 2-[address] MERCEDES IN [place]) Diet: Regular Addtl Attending Provider Instructions: You be advised that you discontinue drinking alcohol both for the avoidance of future seizures and to continue to try to preserve the health of your liver People accomplish alcohol cessation usually with the help of counseling may consider alcoholics anonymous that is typically free of charge but you can also seek counseling through a certified psychologist psychiatrist or drug and alcohol counselor. During hospital stay been started on a medication called Neurontin this is to be tapered off and he will be given a prescription for medication with a tapering dose instruction Please consider taking a multiple vitamin daily Pending Studies at Discharge: No Stand-Alone Forms: My [facility], Smoking Cessation Medications and DC Order Prescriptions: New lactulose 20 gram/30 mL Solution 20 g PO BID Qty: 2000 0RF gabapentin 300 mg capsule 300 mg PO UD Qty: 10 0RF Rx Instructions: 2 twice a day x 2d->1 twice a day x 2 d, 1 at night chlordiazepoxide HCl 10 mg capsule 10 mg PO UD Qty: 12 0RF Rx Instructions: 1 tid x 2 d->1 bid x 2 Days-> 1 hs x 2 d Continued spironolactone 100 mg tablet 150 mg PO QAM furosemide 20 mg Tablet 20 mg PO QAM prednisone 20 mg tablet 0 mg PO DIRECTED Rx Instructions: STARTED 03/12/22 FOR 9 DAYS, PT STILL HAS 3 TABS IN RX BOTTLE. TAKE 60 MG X 3 DAYS, THEN 40 MG X 3 DAYS, THEN 20 MG X 3 DAYS. benzonatate 100 mg capsule 100 mg PO TID PRN (Reason: Cough) buspirone 10 mg tablet 10 mg PO TID levothyroxine 25 mcg tablet 25 mcg PO DAILYBB sertraline 25 mg tablet 25 mg PO DAILY Discharge Orders: Discharge Order (Routine); Ordered 03/24/22 Ordered By: Poli Jackson Admission Data Admit Date/Time: 03/22/22 01:29 Attending Provider: Poli Jackson Admit Provider: Abraham Moya Primary Care Provider: Elmer Diggs Other Providers: Abraham Moya ; Dimitri Ocampo Other Interventions: Discharge Summary Assessment (RN) Last Done: 03/24/22 11:57 Coding Level of Care Code HOSP INP/OBS DISCH >30 MIN Diagnoses Alcohol withdrawal seizure F10.939; R56.9 Closed right fibular fracture S82.401A Hepatic cirrhosis K74.60 Alcohol abuse F10.10 Thrombocytopenia D69.6 Anxiety F41.9 Hypothyroid E03.9
[2022-03-23] MEDS: LACTULOSE SYRUP 20 GM/30 ML UDC PO SCH ×2 (08:12→20:19)
[2022-03-23] MEDS: FUROSEMIDE 20 MG TAB PO SCH (08:13)
[2022-03-23] MEDS: SPIRONOLACTONE 25 MG TAB PO SCH (08:13)
[2022-03-23] MEDS: busPIRone 5 MG TAB PO SCH ×3 (08:13→20:19)
[2022-03-23] MEDS: SERTRALINE HCL 50 MG TABLET PO SCH (08:13)
[2022-03-23] MEDS: THIAMINE HCL 100 MG TAB PO SCH (08:13)
[2022-03-23] MEDS: FOLIC ACID 1 MG TAB PO SCH (08:13)
[2022-03-23] MEDS: CALCIUM CARBONATE 500 MG CHEWABLE TAB PO PRN ×2 (12:33→22:12)
--- NOTE | 2022-03-23 21:46 | Electrocardiogram Report ---
Test Reason : Blood Pressure : / mmHG Vent. Rate : 092 BPM Atrial Rate : 092 BPM P-R Int : 158 ms QRS Dur : 088 ms QT Int : 400 ms P-R-T Axes : 063 -54 054 degrees QTc Int : 494 ms Normal sinus rhythm Biatrial enlargement Left axis deviation Prolonged QT Abnormal ECG When compared with ECG of 17-MAY-2020 13:58, No significant change was found Confirmed by Gomez Sinha ([id number]) on 03/23/2022 9:46:12 PM Referred By: REFERRED SELF Confirmed By:Gomez Sinha
[2022-03-24] MEDS: GABAPENTIN 600 MG TAB PO SCH ×2 (00:58→13:05)
[2022-03-24] MEDS ORDERED: GABAPENTIN 600 MG TAB PO SCH (01:30)
[2022-03-24] MEDS: LEVOTHYROXINE SODIUM 25 MCG TABLET PO SCH (05:54)
[2022-03-24 06:53] LABS: Hematocrit (blood only) 40.4 % (34.1-44.9); Hemoglobin 13.8 g/dl (12.0-16.0); Mean Corpuscular Hemoglobin 35.1 pg (25.0-34.0); Mean Corpuscular Hgb Conc 34.2 g/dL (32.0-36.0); Mean Corpuscular Volume 102.8 fL (80.0-100.0); Mean Platelet Volume 12.3 fL (9.4-12.3); Platelet Count 55 K/uL (130-400); RDW Coefficient of Variation 13.5 % (11.5-14.5); RDW Standard Deviation 51.9 fL (36.4-46.3); Red Blood Count 3.93 M/uL (3.93-5.22); White Blood Count 8.08 K/ul (4.8-10.8)
[2022-03-24 07:00] LABS: INR 1.6 (0.9-1.1); Partial Thromboplastin Time 28.5 Seconds (21.0-31.0); Prothrombin Time 16.5 Seconds (9.0-12.0)
[2022-03-24 07:20] LABS: Albumin Globulin Ratio 1.2 (0.9-2); Albumin Level 3.1 gm/dl (3.4-5.0); BUN Creatinine Ratio 11.5 (10-20); Bilirubin,Total 4.8 mg/dl (0.2-1.0); Calcium 9.5 mg/dl (8.5-10.1); Creatinine Clr Calc Pharmacy 63.8 ml/min; Est GFR (African American) 99.2 ml/min; Est GFR (Non-African American) 85.6 ml/min; Globulin 2.6 gm/dl (2.5-4.0); Magnesium 1.5 mg/dl (1.7-2.4); Potassium 4.1 mmol/L (3.5-5.1); Total Protein 5.7 gm/dl (6.0-8.3)
[2022-03-24 07:23] LABS: Basophils # (auto) 0.05 K/uL (0-0.2); Basophils % (auto) 0.6 %; Eosinophils # (auto) 0.08 K/uL (0-0.50); Immature Granulocytes # (auto) 0.03 K/uL (0.00-0.02); Immature Granulocytes % (auto) 0.4 %; Lymphocytes # (auto) 2.11 K/uL (1.2-3.4); Lymphocytes % (auto) 26.1 %; Monocytes # (auto) 0.84 K/uL (0.24-0.82); Monocytes % (auto) 10.4 %; Neutrophils # (auto) 4.97 K/uL (1.4-6.5); Neutrophils % (auto) 61.5 %
[2022-03-24] MEDS: LACTULOSE SYRUP 20 GM/30 ML UDC PO SCH (08:02)
[2022-03-24] MEDS: SERTRALINE HCL 50 MG TABLET PO SCH (08:02)
[2022-03-24] MEDS: busPIRone 5 MG TAB PO SCH ×2 (08:03→13:35)
[2022-03-24] MEDS: SPIRONOLACTONE 25 MG TAB PO SCH (08:04)
[2022-03-24] MEDS: FUROSEMIDE 20 MG TAB PO SCH (08:04)
[2022-03-24] MEDS: THIAMINE HCL 100 MG TAB PO SCH (08:04)
[2022-03-24] MEDS: FOLIC ACID 1 MG TAB PO SCH (08:04)
[2022-03-25] MEDS ORDERED: GABAPENTIN 600 MG TAB PO SCH ×2 (13:30→13:45)
== END 2022-03-24 16:01 | disposition home or self-care (01) | DRG 101 ==
LOC: ED 22:52 → EDINP 03-22 01:29 → SUATTDRO 03-22 01:29 → 2N 03-22 02:24

== ENCOUNTER 2022-06-22 13:16 | Inpatient (IN) ==
[2022-06-22] MEDS ORDERED: RAPID SEQUENCE INDUCTION BAG ONE (13:20)
[2022-06-22] MEDS ORDERED: ONDANSETRON INJ 2 MG/ML 2 ML VIAL IV STA (13:22)
[2022-06-22] MEDS ORDERED: SODIUM CHLORIDE 0.9% 1000ML 1,000 ML IV SCH (13:30)
[2022-06-22] MEDS ORDERED: STAT IV Infusion **Titration per Protocol STA ×2 (13:33→22:27)
[2022-06-22] MEDS ORDERED: PROPOFOL BOLUS FROM BAG IV PRN (13:33)
[2022-06-22] MEDS ORDERED: SODIUM CHLORIDE 0.9% 1000ML 1,000 ML IV ONE (13:36)
--- NOTE | 2022-06-22 13:43 | Emergency Department Note ---
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 Documented By: BK Discontinued Medications Sodium Chloride (Nss 1000ml) 1,000 mls @ 999 mls/hr IV .Q1H1M CLARISA Stop: 06/22/22 14:30 Last Infusion: 06/22/22 14:38 Dose: 0 mls/hr Documented By: Admin: 06/22/22 13:51 Dose: 999 mls/hr Documented By: CARLOTTA Sodium Chloride (Nss 1000ml) 1,000 mls @ 999 mls/hr IV .Q1H1M ONE Stop: 06/22/22 14:36 Last Infusion: 06/22/22 14:38 Dose: 0 mls/hr Documented By: Admin: 06/22/22 13:50 Dose: 999 mls/hr Documented By: CARLOTTA Piperacillin Sod/Tazobactam Sod (Zosyn) 4.5 gm in 120 mls @ 240 mls/hr IV NOW ONE Stop: 06/22/22 14:55 Last Infusion: 06/22/22 16:03 Dose: 0 mls/hr Documented By: Admin: 06/22/22 14:43 Dose: 240 mls/hr Documented By: CARLOTTA Ioversol (Optiray 350 100ml) 83 ml IV ONCE ONE Stop: 06/22/22 15:11 Last Admin: 06/22/22 15:11 Dose: 83 ml Documented By: MEENA Miscellaneous (Rapid Sequence Induction Bag) Confirm Administered Dose 1 each N/A .STK-MED ONE Stop: 06/22/22 13:21 Last Admin: 06/22/22 13:51 Dose: Not Given Documented By: CARLOTTA Hernandezaneous (Stat Iv Infusion Titration Per Protocol) 1 each N/A NOW STA Stop: 06/22/22 13:34 Last Admin: 06/22/22 17:03 Dose: Not Given Documented By: MARCUS Ondansetron HCl (Ondansetron Inj 2 Mg/Ml 2 Ml Vial) 4 mg IV NOW STA Stop: 06/22/22 13:23 Last Admin: 06/22/22 13:50 Dose: 4 mg Documented By: CARLOTTA Imaging Data Attestation: I personally reviewed and interpreted this imaging study as follows: My Impression: CT of the brain was obtained in the emergency department. My interpretation is large right subdural hematoma with midline shift. Final report below. Radiologist's Impression: Cervical Spine CT 06/22/22 13:22 CT OF THE CERVICAL SPINE WITHOUT CONTRAST CLINICAL HISTORY: Overdose. COMPARISON STUDY: Cervical spine CT December 28, 2021. TECHNIQUE: Helical axial images of the cervical spine were obtained without IV contrast. Sagittal and coronal reconstructions were viewed. Automated exposure control was utilized for the study. A dose lowering technique was utilized adhering to the principles of ALARA. FINDINGS: Endotracheal tube is partially imaged. Old C7 spinous process fractures again noted. Alignment of the cervical spine is anatomic. Vertebral body heights are maintained. No acute cervical spine fracture or subluxation is present. There is no prevertebral edema. Facet joints are intact. IMPRESSION: No acute cervical spine fracture or subluxation. ACT 112: Negative or not required by law. Electronically signed by: Guy Dyer M.D. 06/22/2022 3:42 PM Chest X-Ray 06/22/22 13:22 SEMIERECT PORTABLE AP CHEST RADIOGRAPH CLINICAL HISTORY: OD COMPARISON STUDY: Chest radiograph September 09, 2018. FINDINGS: Tip of the endotracheal tube is 4.4 cm above the mohini. Left basilar airspace opacity is present. No pneumothorax or pleural effusion is present. Pulmonary vascularity is normal. Cardiac size is normal. IMPRESSION: 1. Satisfactory positioning of the endotracheal tube. 2. Left basilar airspace opacity which could reflect pneumonia, aspiration pneumonitis or atelectasis. ACT 112: Negative or not required by law. Electronically signed by: Guy Dyer M.D. 06/22/2022 2:[address] 06/22/22 13:22 CT OF THE HEAD WITHOUT CONTRAST CLINICAL HISTORY: Unresponsive. Overdose. COMPARISON STUDY: Head CT December 28, 2021. TECHNIQUE: Helical axial images of the head were obtained without IV contrast. Automated exposure control was utilized for the study. A dose lowering tech nique was utilized adhering to the principles of ALARA. FINDINGS: Note is made of a large acute right subdural hematoma which measures 3 cm in thickness. There is marked mass effect with 1.9 cm of leftward midline shift. There is marked compression of the right lateral ventricle as well as subfalcine and uncal herniation. There is extensive hypodensity with loss of laura-white differentiation within the right temporal, frontal and parietal lobes. There is also possible hypodensity within the left frontal and anterior left temporal lobes. There is relative preservation of the right basal ganglia. There is no acute calvarial fracture. IMPRESSION: Large acute right subdural hematoma with marked mass effect including 1.9 cm of leftward midline shift, marked compression of the right lateral ventricle and subfalcine and uncal herniation. Extensive hypodensity with loss of laura-white differentiation within the right greater than left cerebral hemispheres, as described above. This suggests edema, potentially on the basis of infarction related to herniation. Urgent Neurosurgical consultation is recommended. Discussed with Dr. Alvarez at time of dictation. ACT 112: Negative or not required by law. Electronically signed by: Guy Dyer M.D. 06/22/2022 3:35 PM Abdomen/Pelvis CT 06/22/22 13:36 CT OF THE ABDOMEN AND PELVIS WITH CONTRAST CLINICAL HISTORY: Overdose. COMPARISON STUDY: Ascites ultrasound June 02, 2019 and MRCP September 01, 2018. TECHNIQUE: Following IV administration of 83 mL of Optiray, axial images of the abdomen and pelvis were obtained from the lung bases to the proximal femurs. Images were reviewed in the axial, sagittal, and coronal planes. IV contrast was administered without complication. Automated exposure control was utilized for the study. A dose lowering technique was utilized adhering to the principles of ALARA. CT DOSE: 1448.96 mGy.cm FINDINGS: There are trace bilateral pleural fusions. Left lower lobe airspace opacity is noted. No pneumatosis, free air or portal venous gas is present. A TIPS is patent. There is hepatic steatosis as well as suspected cirrhosis. There are numerous indeterminate hypodense hepatic lesions were were not clearly evident on previous MRI. These measure up to 8 mm. There is no biliary or pancreatic ductal dilatation. There are gallstones within the gallbladder. There is mild mucosal enhancement of the gallbladder. Spleen, adrenal glands, left kidney and pancreas are unremarkable. There is mild right hydronephrosis. A Knutson balloon and gas within the bladder present. There is no evidence for a bowel obstruction. No fluid collection is identified to suggest abscess. Major vasculature is patent. No acute fractures are identified within visualized skeletal structures. IMPRESSION: 1. Hepatic steatosis and cirrhosis. Multiple subcentimeter indeterminate hypodense hepatic lesions. Patent TIPS. 2. Cholelithiasis. 3. Mild right hydronephrosis. 4. No bowel obstruction. ACT 112: Negative or not required by law. Electronically signed by: Guy Dyer M.D. 06/22/2022 4:[address] 06/22/22 13:36 CT OF THE CHEST WITH IV CONTRAST CLINICAL HISTORY: Overdose. COMPARISON STUDY: Chest radiographs September 09, 2018 and June 22, 2022. TECHNIQUE: Following IV administration of 83 mL of Optiray, helical axial images of the chest were obtained. Sagittal and coronal reconstructions were viewed as well as maximal intensity projections on an independent 3-D workstation. Automated exposure control was utilized for the study. A dose lowering technique was utilized adhering to the principles of ALARA. FINDINGS: Tip of endotracheal tube is 2.5 cm above the mohini. The size of the heart is normal. There is no thoracic aortic dissection. No central pulmonary emboli are identified. There is no pericardial effusion. There are trace bilateral pleural effusions. Subpleural left lower lobe opacity is present. There is no pneumothorax. No acute fractures within the bony thorax are noted. Old right-sided rib fractures are noted. The abdomen and pelvis CT will be reported separately. IMPRESSION: 1. Trace bilateral pleural effusions. Left lower lobe opacity favors atelectasis although pneumonia or aspiration pneumonitis could appear similar. 2. No pneumothorax. 3. Satisfactory positioning of the endotracheal tube. ACT 112: Negative or not required by law. Electronically signed by: Guy Dyer M.D. 06/22/2022 3:55 PM Discharge Plan Visit Data Chief Complaint: Unresponsive ED Provider: Rohan Alvarez Discharge Problem: Acute subdural hematoma, Acute alteration in mental status, Alcohol intoxication, Herniation of brain stem, Thrombocytopenia Patient Disposition: Being Evaluated by Hospitalist Discharge Instructions Interventions: ED Discharge Assessment Last Done: 06/22/22 17:51 Forms Stand Alone Forms: My [facility] Prescriptions Prescriptions: No Action spironolactone 100 mg tablet 150 mg PO QAM furosemide 20 mg Tablet 20 mg PO QAM prednisone 20 mg tablet 0 mg PO DIRECTED Rx Instructions: STARTED 03/12/22 FOR 9 DAYS, PT STILL HAS 3 TABS IN RX BOTTLE. TAKE 60 MG X 3 DAYS, THEN 40 MG X 3 DAYS, THEN 20 MG X 3 DAYS. benzonatate 100 mg capsule 100 mg PO TID PRN (Reason: Cough) buspirone 10 mg tablet 10 mg PO TID lactulose 20 gram/30 mL Solution 20 g PO BID Qty: 2000 0RF gabapentin 300 mg capsule 300 mg PO UD Qty: 10 0RF Rx Instructions: 2 twice a day x 2d->1 twice a day x 2 d, 1 at night chlordiazepoxide HCl 10 mg capsule 10 mg PO UD Qty: 12 0RF Rx Instructions: 1 tid x 2 d->1 bid x 2 Days-> 1 hs x 2 d levothyroxine 25 mcg tablet 25 mcg PO DAILYBB sertraline 25 mg tablet 25 mg PO DAILY Referrals Referrals: Elmer Diggs DO [Primary Care Provider] -
[2022-06-22 14:00] LABS: Pregnancy Test, Serum Negative (Negative)
[2022-06-22 14:02] LABS: Basophils # (auto) 0.06 K/uL (0-0.2); Basophils % (auto) 0.6 %; Eosinophils # (auto) 0.04 K/uL (0-0.50); Eosinophils % (auto) 0.4 %; Hematocrit (blood only) 32.9 % (37.0-47.0); Hemoglobin 11.3 g/dl (12.0-16.0); Immature Granulocytes # (auto) 0.09 K/uL (0.01-0.20); Lymphocytes % (auto) 18.1 %; Mean Corpuscular Hemoglobin 36.7 pg (25.0-34.0); Mean Corpuscular Hgb Conc 34.3 g/dL (32.0-36.0); Mean Corpuscular Volume 106.8 fL (80.0-100.0); Mean Platelet Volume 11.1 fL (9.4-12.4); Monocytes # (auto) 1.03 K/uL (0.11-0.59); Neutrophils # (auto) 6.45 K/uL (1.40-6.50); Neutrophils % (auto) 68.9 %; Platelet Count 115 K/uL (130-400); RDW Coefficient of Variation 16.7 % (11.5-14.5); RDW Standard Deviation 65.8 fL (36.4-46.3); Red Blood Count 3.08 M/uL (4.20-5.40); White Blood Count 9.37 K/ul (4.8-10.8)
[2022-06-22 14:03] LABS: Alanine Aminotransferase 30 U/L (7-52); Albumin Globulin Ratio 1.2 (0.9-2); Albumin Level 3.4 gm/dl (3.4-5.0); Alkaline Phosphatase 220 U/L (34-104); Anion Gap 11 (3-11); Aspartate Aminotransferase 126 U/L (13-39); BUN Creatinine Ratio 5.4 (10-20); Bilirubin,Total 10.5 mg/dl (0.2-1.0); Blood Urea Nitrogen 4 mg/dl (6-23); Calcium 8.3 mg/dl (8.6-10.3); Carbon Dioxide 30 mmol/L (21-32); Chloride 103 mmol/L (98-107); Creatine Kinase 178 U/L (26-192); Est GFR (African American) 105.7 ml/min; Est GFR (Non-African American) 91.2 ml/min; Globulin 2.9 gm/dl (2.5-4.0); Glucose 162 mg/dl (70-99(Fasting)); Lipase 36 U/L (11-82); Magnesium 1.9 mg/dl (1.7-2.4); Potassium 3.7 mmol/L (3.5-5.1); Sodium 144 mmol/L (136-145); Total Protein 6.3 gm/dl (6.0-8.3)
[2022-06-22 14:04] LABS: Acetaminophen < 3 ug/ml (10-30); Salicylate < 3.0 mg/dl (3.0-30)
[2022-06-22] MEDS ORDERED: KETAMINE HCL INJ 50 MG/ML 10 ML VIAL IV ONE (14:14)
[2022-06-22] MEDS ORDERED: ROCURONIUM BROMIDE 10 MG/ML 5 ML VIAL IV ONE (14:14)
[2022-06-22 14:17] LABS: INR 1.3 (0.9-1.1); Prothrombin Time 13.8 Seconds (9.0-12.0)
[2022-06-22 14:18] LABS: Appearance Urine Slightly Cloudy (Clear); Bilirubin Urine Negative (Negative); Blood Urine Trace-intact (Negative); Color Urine Yellow; Glucose Urine UA Negative (Negative); Ketones Urine Negative (Negative); Leukocyte Esterase Urine Trace (Negative); Nitrite Urine Negative (Negative); Protein Urine Negative (Negative); Urobilinogen Urine Negative (Negative)
[2022-06-22 14:23] LABS: Troponin I High Sensitivity 74.8 pg/ml (0-14)
--- NOTE | 2022-06-22 14:25 | XRay Report ---
SEMIERECT PORTABLE AP CHEST RADIOGRAPH CLINICAL HISTORY: OD COMPARISON STUDY: Chest radiograph September 09, 2018. FINDINGS: Tip of the endotracheal tube is 4.4 cm above the mohini. Left basilar airspace opacity is p resent. No pneumothorax or pleural effusion is present. Pulmonary vascularity is normal. Cardiac size is normal. IMPRESSION: 1. Satisfactory positioning of the endotracheal tube. 2. Left basilar airspace opacity which could reflect pneumonia, aspiration pneumonitis or atelectasis . ACT 112: Negative or not required by law. Electronically signed by: Guy Dyer M.D. 06/22/2022 2:24 PM
[2022-06-22] MEDS ORDERED: PIPERACILLIN/TAZOBACTAM 4.5 GM/120 ML BAG IV ONE (14:26)
[2022-06-22 14:27] LABS: Bacteria Urine 4+ (Negative); RBC Urine 0-4 /hpf (0-4)
[2022-06-22 14:37] LABS: Amphetamines+Metham, Urine Neg (Neg); Barbiturates, Urine Neg (Neg); Benzodiazepine, Urine Neg (Neg); Cocaine, Urine Neg (Neg); MDMA (Ecstacy), Urine Neg (Neg); Methadone, Urine Neg (Neg); Opiate, Urine Neg (Neg); Phencyclidine, Urine Neg (Neg)
[2022-06-22 15:00] LABS: Bilirubin Direct 5.5 mg/dl (0-0.2)
[2022-06-22] MEDS ORDERED: OPTIRAY 350 100ml IV ONE (15:10)
--- NOTE | 2022-06-22 15:38 | CT Scan Report ---
CT OF THE HEAD WITHOUT CONTRAST CLINICAL HISTORY: Unresponsive. Overdose. COMPARISON STUDY: Head CT December 28, 2021. TECHNIQUE: Helical axial images of the head were obtained without IV contrast. Automated exposure con trol was utilized for the study. A dose lowering technique was utilized adhering to the principles o f ALARA. FINDINGS: Note is made of a large acute right subdural hematoma which measures 3 cm in thickness. The re is marked mass effect with 1.9 cm of leftward midline shift. There is marked compression of the ri ght lateral ventricle as well as subfalcine and uncal herniation. There is extensive hypodensity with loss of laura-white differentiation within the right temporal, frontal and parietal lobes. There is a lso possible hypodensity within the left frontal and anterior left temporal lobes. There is relative preservation of the right basal ganglia. There is no acute calvarial fracture. IMPRESSION: Large acute right subdural hematoma with marked mass effect including 1.9 cm of leftward midline shift, marked compression of the right lateral ventricle and subfalcine and uncal herniation . Extensive hypodensity with loss of laura-white differentiation within the right greater than left ce rebral hemispheres, as described above. This suggests edema, potentially on the basis of infarction r elated to herniation. Urgent Neurosurgical consultation is recommended. Discussed with Dr. Alvarez at t richi of dictation. ACT 112: Negative or not required by law. Electronically signed by: Guy Dyer M.D. 06/22/2022 3:35 PM
--- NOTE | 2022-06-22 15:43 | CT Scan Report ---
CT OF THE CERVICAL SPINE WITHOUT CONTRAST CLINICAL HISTORY: Overdose. COMPARISON STUDY: Cervical spine CT December 28, 2021. TECHNIQUE: Helical axial images of the cervical spine were obtained without IV contrast. Sagittal a nd coronal reconstructions were viewed. Automated exposure control was utilized for the study. A do se lowering technique was utilized adhering to the principles of ALARA. FINDINGS: Endotracheal tube is partially imaged. Old C7 spinous process fractures again noted. Alignm ent of the cervical spine is anatomic. Vertebral body heights are maintained. No acute cervical spine fracture or subluxation is present. There is no prevertebral edema. Facet joints are intact. IMPRESSION: No acute cervical spine fracture or subluxation. ACT 112: Negative or not required by law. Electronically signed by: uGy Dyer M.D. 06/22/2022 3:42 PM
--- NOTE | 2022-06-22 15:58 | CT Scan Report ---
CT OF THE CHEST WITH IV CONTRAST CLINICAL HISTORY: Overdose. COMPARISON STUDY: Chest radiographs September 09, 2018 and June 22, 2022. TECHNIQUE: Following IV administration of 83 mL of Optiray, helical axial images of the chest were o btained. Sagittal and coronal reconstructions were viewed as well as maximal intensity projections o n an independent 3-D workstation. Automated exposure control was utilized for the study. A dose low ering technique was utilized adhering to the principles of ALARA. FINDINGS: Tip of endotracheal tube is 2.5 cm above the mohini. The size of the heart is normal. Ther e is no thoracic aortic dissection. No central pulmonary emboli are identified. There is no pericardi al effusion. There are trace bilateral pleural effusions. Subpleural left lower lobe opacity is prese nt. There is no pneumothorax. No acute fractures within the bony thorax are noted. Old right-sided ri b fractures are noted. The abdomen and pelvis CT will be reported separately. IMPRESSION: 1. Trace bilateral pleural effusions. Left lower lobe opacity favors atelectasis although pneumonia o r aspiration pneumonitis could appear similar. 2. No pneumothorax. 3. Satisfactory positioning of the endotracheal tube. ACT 112: Negative or not required by law. Electronically signed by: Guy Dyer M.D. 06/22/2022 3:55 PM
--- NOTE | 2022-06-22 16:08 | CT Scan Report ---
CT OF THE ABDOMEN AND PELVIS WITH CONTRAST CLINICAL HISTORY: Overdose. COMPARISON STUDY: Ascites ultrasound June 02, 2019 and MRCP September 01, 2018. TECHNIQUE: Following IV administration of 83 mL of Optiray, axial images of the abdomen and pelvis we re obtained from the lung bases to the proximal femurs. Images were reviewed in the axial, sagittal, and coronal planes. IV contrast was administered without complication. Automated exposure control wa s utilized for the study. A dose lowering technique was utilized adhering to the principles of ALARA . CT DOSE: 1448.96 mGy.cm FINDINGS: There are trace bilateral pleural fusions. Left lower lobe airspace opacity is noted. No pn eumatosis, free air or portal venous gas is present. A TIPS is patent. There is hepatic steatosis as well as suspected cirrhosis. There are numerous indeterminate hypodense hepatic lesions were were not clearly evident on previous MRI. These measure up to 8 mm. There is no biliary or pancreatic ductal dilatation. There are gallstones within the gallbladder. There is mild mucosal enhancement of the gal lbladder. Spleen, adrenal glands, left kidney and pancreas are unremarkable. There is mild right hydr onephrosis. A Knutson balloon and gas within the bladder present. There is no evidence for a bowel obst ruction. No fluid collection is identified to suggest abscess. Major vasculature is patent. No acute fractures are identified within visualized skeletal structures. IMPRESSION: 1. Hepatic steatosis and cirrhosis. Multiple subcentimeter indeterminate hypodense hepatic lesions. P atent TIPS. 2. Cholelithiasis. 3. Mild right hydronephrosis. 4. No bowel obstruction. ACT 112: Negative or not required by law. Electronically signed by: Guy Dyer M.D. 06/22/2022 4:06 PM
[2022-06-22] MEDS: propofoL 1,000 MG/100 ML VIAL IV SCH (17:03)
--- NOTE | 2022-06-22 17:16 | Electrocardiogram Report ---
Test Reason : Blood Pressure : / mmHG Vent. Rate : 114 BPM Atrial Rate : 114 BPM P-R Int : 170 ms QRS Dur : 084 ms QT Int : 282 ms P-R-T Axes : 091 266 065 degrees QTc Int : 388 ms Poor data quality, interpretation may be adversely affected Sinus tachycardia with occasional Premature atrial complexes Right superior axis deviation Abnormal ECG When compared with ECG of 21-MAR-2022 23:25, No significant change Confirmed by Ishan Cuellar ([id number]) on 06/22/2022 5:16:13 PM Referred By: REFERRED SELF Confirmed By:Ishan Cuellar
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
[2022-06-22] MEDS ORDERED: ONDANSETRON INJ 2 MG/ML 2 ML VIAL IV PRN (18:21)
[2022-06-22] MEDS ORDERED: LORazepam 2 MG/1 ML VIAL IV PRN (18:21)
[2022-06-22] MEDS ORDERED: MoRPHine SULFATE 2 MG/ML CARP IV PRN (18:21)
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
[2022-06-22] MEDS ORDERED: NOREPINEPHRINE/D5W 4 MG/250 ML IV ONE (22:29)
[2022-06-22] MEDS: NOREPINEPHRINE/D5W 4 MG/250 ML PLCT IV SCH (22:42)
--- NOTE | 2022-06-22 22:55 | Communication Note ---
Date of Service: June 22, 2022 Spoke with the policy services representative from [employer] and patient's parents are willing to proceed with organ donation. Patient may be candidate for renal transplant per conversation. At this point patient is becoming hypotensive and it was requested that we offer vasopressor support. This is likely due to progressive herniation which would be expected given the extensive hematoma and mass effect. Patient remains DNR but will add on Levophed for blood pressure support for organ perfusion. Coding Level of Care Code None
[2022-06-22 23:53] LABS: Appearance Urine Clear (Clear); Bilirubin Urine Negative (Negative); Blood Urine Trace-lysed (Negative); Color Urine Yellow; Glucose Urine UA Negative (Negative); Ketones Urine Negative (Negative); Leukocyte Esterase Urine 2+ (Negative); Nitrite Urine Negative (Negative); Protein Urine Negative (Negative); Urobilinogen Urine Negative (Negative); pH Urine 7.5 (4.5-7.5)
[2022-06-23] MEDS ORDERED: SODIUM CHLORIDE 0.45 % 1,000 ML IV ONE (00:09)
[2022-06-23 00:23] LABS: Albumin Level 2.7 gm/dl (3.4-5.0); BUN Creatinine Ratio 7.2 (10-20); Bilirubin,Total 9.3 mg/dl (0.2-1.0); Calcium 8.1 mg/dl (8.6-10.3); Creatinine Clr Calc Pharmacy 76.2 ml/min; Est GFR (African American) 113.6 ml/min; Globulin 2.6 gm/dl (2.5-4.0); Potassium 3.6 mmol/L (3.5-5.1); Total Protein 5.3 gm/dl (6.0-8.3)
[2022-06-23] MEDS ORDERED: DEXTROSE 5% 1,000 ML IV ONE ×4 (00:28→07:30)
[2022-06-23] MEDS ORDERED: DESMOPRESSIN ACETATE 0.5 MCG in SODIUM CHLORIDE 0.9% 50 ML IV ONE ×2 (00:30→06:30)
[2022-06-23 00:31] LABS: INR 1.4 (0.9-1.1); Partial Thromboplastin Ratio 1.1; Partial Thromboplastin Time 29.2 Seconds (21.0-31.0); Prothrombin Time 14.9 Seconds (9.0-12.0)
[2022-06-23 00:50] LABS: Hematocrit (blood only) 26.9 % (37.0-47.0); Hemoglobin 9.3 g/dl (12.0-16.0); Mean Corpuscular Hgb Conc 34.6 g/dL (32.0-36.0); Mean Corpuscular Volume 104.3 fL (80.0-100.0); Platelet Count 94 K/uL (130-400); RDW Coefficient of Variation 17.2 % (11.5-14.5); RDW Standard Deviation 65.1 fL (36.4-46.3); Red Blood Count 2.58 M/uL (4.20-5.40); White Blood Count 8.28 K/ul (4.8-10.8)
[2022-06-23 00:51] LABS: Platelet Estimate Decreased (Normal)
[2022-06-23 01:02] LABS: Bacteria Urine Negative (Negative); Epithelial Cell Urine 0-5 /lpf (0-5); RBC Urine 0-4 /hpf (0-4)
[2022-06-23] MEDS: NOREPINEPHRINE/D5W 4 MG/250 ML PLCT IV SCH ×2 (03:16→08:20)
[2022-06-23] MEDS: propofoL 1,000 MG/100 ML VIAL IV SCH (04:50)
[2022-06-23 05:17] LABS: iSTAT Allen Test Pass; iSTAT Art Bld Gas pCO2 Correct 44 mmHg (35-46); iSTAT Art Bld Gas pH Corrected 7.395 (7.35-7.45); iSTAT Arterial Blood Gas HCO3 27 meg/L (19-24); iSTAT Arterial Blood Gas pCO2 45 mmHg (35-46); iSTAT Arterial Blood Gas pH 7.39 (7.35-7.45); iSTAT Arterial Blood Gas pO2 > 420 mmHg (80-95); iSTAT Arterial Blood Gas pO2 C 489; iSTAT Carbon Dioxide 29 mmol/L (24-31); iSTAT FiO2 100 %; iSTAT Hematocrit 24 % (37-47); iSTAT Hemoglobin 8.2 g/dl (12.0-16.0); iSTAT Potassium 2.8 mmol/L (3.3-5.0); iSTAT Site R Radial; iSTAT Sodium 162 mmol/L (135-144)
[2022-06-23 05:57] LABS: BUN Creatinine Ratio 7.2 (10-20); Calcium 7.9 mg/dl (8.6-10.3); Creatinine Clr Calc Pharmacy 75.3 ml/min; Est GFR (African American) 112.8 ml/min; Est GFR (Non-African American) 97.3 ml/min; Potassium 3.1 mmol/L (3.5-5.1)
[2022-06-23] MEDS ORDERED: INSULIN PROTOCOL GOAL RANGE ONE (06:09)
[2022-06-23] MEDS ORDERED: STAT IV STA (06:09)
[2022-06-23] MEDS ORDERED: INSULIN REGULAR 250 UNITS in SODIUM CHLORIDE 0.9% 247.5 ML IV SCH (06:15)
[2022-06-23] MEDS ORDERED: GLUCOSE 40% GEL 15 GM TUBE PO PRN (06:30)
[2022-06-23] MEDS ORDERED: CARBOHYDRATES FOR HYPOGLYCEMIA PO PRN (06:30)
[2022-06-23] MEDS ORDERED: NovoLIN-R BOLUS FROM BAG IV ONE (06:30)
[2022-06-23] MEDS ORDERED: GLUCAGON FOR INJ 1 MG VIAL IM PRN (06:30)
[2022-06-23] MEDS ORDERED: GLUCOSE 10 TAB/TUBE PO PRN (06:30)
[2022-06-23] MEDS ORDERED: DEXTROSE 50% 50 ML SYRINGE IV PRN (06:30)
[2022-06-23] MEDS ORDERED: INSULIN ASPART PER UNIT CHARGE SC SCH (07:30)
[2022-06-23] MEDS ORDERED: POTASSIUM CHLORIDE 20 MEQ/15 ML UDC PO STA (08:15)
[2022-06-23] MEDS ORDERED: STAT IV Infusion **Titration per Protocol STA ×2 (08:17→10:42)
[2022-06-23] MEDS ORDERED: VASOPRESSIN 20 UNITS in 0.9 % SODIUM CHLORIDE 100 ML IV SCH (08:30)
[2022-06-23] MEDS: POTASSIUM CHLORIDE / WTR 10 MEQ/100 ML PLCT IV SCH ×4 (08:41→11:58)
--- NOTE | 2022-06-23 08:58 | Critical Care Progress Note ---
Date of Service June 23, 2022 Assessment & Plan (1) Acute subdural hematoma: (2) Alcohol intoxication: (3) Herniation of brain stem: (4) Shock circulatory: (5) Acute alteration in mental status: (6) Thrombocytopenia: (7) Cirrhosis of liver with ascites: (8) Hypernatremia: Plan Reason Critically Ill: 57-year-old female admitted to the ICU with large subdural hematoma and brain herniation. Patient not a surgical candidate. DNR/DNI Neuro - [facility] ICU: Negative Not on any sedation -- Subdural hematoma with Midline shift with increased ICP Not a surgical candidate as per [facility] Keep sodium 150-155, keep PCO2 30-35 Cardiac - -- Hypotension Likely from overdiuresis from diabetes insipidus like picture along with increased ICP Continue with IV fluids Vasopressor support to keep MAP greater than 65-75 Respiratory - -- VDRF Secondary to metabolic encephalopathy and brain herniation Continue with ventilatory support Keep RASS -1 Daily sedation holidays and SBT's Chlorhexidine mouthwash GI - Continue with pantoprazole RENAL/LYTES - --Hypernatremia 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 Plan: In/out: +349, urine output 5350 AB.39/45/421 100%, PEEP of 5 Start the patient on vasopressin higher dose to counteract diabetes insipidus like picture from Increased intracerebral pressure Start the patient on pantoprazole 40 mg twice daily. Decrease D5 water to 250 mL an hour, add D5 half at 125 mm NR Repeat labs around 12 PM. We will do apnea test around 12 PM when the patient will be a positive balance. [facility] on board I have personally spent 58 minutes of critical care time in the direct management of this patient. This is a life/limb threatening event. This includes time spent evaluating patient, direct bedside care, chart review, placing orders, interpretation of di agnostic studies, discussion with consultants, patient, and family members, as well as other required patient management activities. This time is exclusive of all separately billable procedures, and teaching time and separate from and in addition to any other critical care service time. Please note the above document was generated using voice recognition software. It may contain grammatical, syntax or spelling errors. Admission and Anticipated Discharge Date Admission Date: June 22, 2022 Subjective Patient seen and examined at bedside. No acute distress. No adverse events overnight Patient was breathing with the vent. Patient's friend was at bedside during examination. She was on Levophed 0.25. Overnight she was making a lot of urine likely diabetes insipidus like picture from the herniation Has been afebrile Does not follow any commands Review of Systems Review of Systems: Unobtainable due to cognitive status, Unobtainable due to endotracheal tube and Unobtainable due to reduced consciousness Physical Exam Physical Exam: Constitutional: No acute distress HEENT: Scleral icterus Respiratory system: Decreased air entry bilaterally, no wheeze, no rhonchi, mild crackles bilateral lower lobes CVS: S1-S2 positive, no murmurs or gallops, accentuated P2 Abdomen: Soft, nontender, nondistended, positive bowel sounds x4 Extremities: +2 pulses bilaterally radialis/ dorsalis pedis, no cyanosis, no remi ma Neuro: No pupillary, no corneal, no gag, no cough, positive lower extremity Psych: Unable to assess G/U: Positive K[place]son Skin: no rashes, warm and dry Lymphatic: no cervical or axillary lymphadenopathy Results & Data Results & Data Vital Signs (Past 12 Hours) Vital Signs Temp Pulse Resp BP Pulse Ox O2 Del Method FiO2 06/23/22 04:11 123/70 06/23/22 04:11 36.4 C L 99 H 15 100 06/23/22 04:00 36.5 C 101 H 15 99 06/23/22 03:56 36.5 C 102 H 15 97 06/23/22 03:56 122/67 06/23/22 03:41 36.6 C 102 H 15 97 06/23/22 03:41 123/66 06/23/22 03:30 36.6 C 103 H 15 98 06/23/22 03:26 36.7 C 102 H 15 98 06/23/22 03:26 122/69 06/23/22 03:11 36.7 C 102 H 15 97 06/23/22 03:11 120/65 06/23/22 03:00 36.8 C 103 H 15 98 06/23/22 02:56 36.8 C 103 H 15 98 06/23/22 02:56 121/66 06/23/22 02:41 117/67 06/23/22 02:41 36.9 C 103 H 15 97 06/23/22 02:30 36.9 C 105 H 15 98 06/23/22 02:26 119/66 06/23/22 02:26 36.9 C 104 H 15 98 06/23/22 02:11 37.0 C 104 H 15 98 06/23/22 02:11 120/68 06/23/22 02:00 37.1 C 105 H 15 98 06/23/22 01:56 121/67 06/23/22 01:56 37.1 C 105 H 15 98 06/23/22 01:41 37.2 C 106 H 15 98 06/23/22 01:41 125/72 06/23/22 01:30 37.3 C 107 H 15 98 06/23/22 01:26 126/72 06/23/22 01:26 37.3 C 106 H 15 98 06/23/22 01:11 37.4 C 107 H 15 98 06/23/22 01:11 131/80 06/23/22 01:00 37.5 C 109 H 15 98 06/23/22 04:00 30 06/23/22 02:41 103 H 15 97 30 06/23/22 00:56 37.5 C 109 H 15 98 06/23/22 00:56 123/77 06/23/22 00:41 37.7 C H 110 H 15 98 06/23/22 00:41 114/72 06/23/22 00:30 37.7 C H 112 H 15 98 06/23/22 00:26 37.7 C H 112 H 15 97 06/23/22 00:26 97/69 L 06/23/22 00:11 37.7 C H 112 H 15 97 06/23/22 00:11 100/68 06/23/22 00:00 37.7 C H 114 H 15 97 06/22/22 23:56 93/68 L 06/22/22 23:56 37.7 C H 114 H 15 97 06/22/22 23:41 101/64 06/22/22 23:41 37.6 C H 111 H 15 98 06/22/22 23:30 37.7 C H 112 H 15 98 06/22/22 23:26 37.6 C H 107 H 15 97 06/22/22 23:26 98/65 L 06/22/22 23:11 37.6 C H 110 H 13 99 06/22/22 23:11 98/62 L 06/22/22 23:00 37.6 C H 105 H 15 97 06/22/22 22:56 119/68 06/22/22 22:56 37.6 C H 103 H 15 98 06/22/22 22:52 129/75 06/22/22 22:52 37.6 C H 103 H 15 98 06/22/22 22:41 120/85 06/22/22 22:41 37.6 C H 113 H 15 97 06/22/22 22:39 37.6 C H 120 H 15 96 06/22/22 22:39 90/64 L 06/22/22 22:38 37.6 C H 124 H 15 96 06/22/22 22:38 62/49 L 06/22/22 22:36 55/35 L 06/22/22 22:36 37.6 C H 114 H 15 96 06/22/22 22:30 37.6 C H 101 H 15 96 06/22/22 22:11 37.5 C 133 H 15 96 06/22/22 22:11 103/68 06/23/22 00:00 30 06/22/22 23:57 Mechanical Vent 30 06/22/22 23:08 110 H 15 97 30 06/22/22 22:00 37.5 C 135 H 15 96 06/22/22 21:56 37.5 C 137 H 15 96 06/22/22 21:56 127/80 06/22/22 21:41 37.6 C H 133 H 15 96 06/22/22 21:41 138/83 06/22/22 21:30 37.6 C H 129 H 15 96 06/22/22 21:26 37.6 C H 129 H 15 96 06/22/22 21:26 136/80 06/22/22 21:11 37.6 C H 126 H 15 97 06/22/22 21:11 137/82 06/22/22 21:00 37.6 C H 120 H 15 99 06/22/22 20:56 151/91 H 06/22/22 20:56 37.6 C H 121 H 14 100 Laboratory Results 06/22/22 23:45 06/23/22 05:18 Coding Level of Care Code 66432 CRITICAL CARE 1ST 30-74M Diagnoses Acute subdural hematoma S06.5XAA Alcohol intoxication F10.920 Complication of substance-induced condition: uncomplicated Herniation of brain stem G93.5 Shock circulatory R57.9 Acute alteration in mental status R41.82 Thrombocytopenia D69.6 Cirrhosis of liver with ascites K70.31 Hepatic cirrhosis type: alcoholic cirrhosis Hypernatremia E87.0 Time Spent (min) 58 (2) Alcohol intoxication Complication of substance-induced condition: uncomplicated Qualified Code(s): F10.920 - Alcohol use, unspecified with intoxication, uncomplicated (7) Cirrhosis of liver with ascites Hepatic cirrhosis type: alcoholic cirrhosis Qualified Code(s): K70.31 - Alcoholic cirrhosis of liver with ascites
[2022-06-23] MEDS ORDERED: PANTOprazole 40 MG in SYRINGE 0 ML IV SCH (09:00)
[2022-06-23] MEDS ORDERED: SODIUM CHLORIDE 0.9% IV PRN ×2 (09:45→11:00)
[2022-06-23] MEDS ORDERED: VASOPRESSIN IV PRN ×2 (09:45→11:00)
--- NOTE | 2022-06-23 10:04 | Procedure Note ---
Procedure Note Date of Service June 23, 2022 Note Procedure: Arterial Line Placement Attending: Dr. Dunbar APC: Nathen Morillo PA-C Indication: Hemodynamic monitoring Anesthesia: Lidocaine 1% Emergent Consent implied in the setting of clinical deterioration and need for close hemodynamic monitoring, ABG monitoring, frequent lab draws, etc. A time-out was completed verifying correct patient, procedure, site, positioning, and implant(s) or special equipment if applicable. Allens test was performed to ensure adequate perfusion. Patients LEFT wrist was prepped and draped in the usual sterile fashion. Ultrasound guidance was used to aid needle placement. A 20g Arrow arterial line was introduced into the LEFT radial artery. Catheter was threaded, and the needle was removed with appropriate blood return. Good waveform was observed. The patient tolerated the procedure well. Confirm ation of placement with ultrasound. Blood Loss: Minimal Complications: Missed attempt on the RIGHT wrist. No immediate complications noted. Dressing applied and changed attempt to the RIGHT side. Procedural Ultrasound Guidance: Procedure Date: 06/23/2022 Indication: Hemodynamic Monitoring, Frequent ABGs/Lab draws. Attending: Dr. Dunbar APC: Nathen Morillo PA-C Artery Identified: YES Line confirmed in Artery with ultrasound: YES Complications: NONE Patient tolerated procedure: WELL Coding CPT Codes Tubes, Drains, and Vasc Access - Tubes, Drains, and Vasc Access: [id number] Arterial Cath/Cannulation Sampling/Monitoring/Transfusion ([id number][place] [facility] [place]Charges) Tubes, Drains, and Vasc Access Procedure 1: Tubes, Drains, and Vasc Access: [id number] Arterial Cath/Cannulation Sampling/Monitoring/Transfusion
[2022-06-23 10:08] LABS: Estimated Average Glucose 68 mg/dl; Hemoglobin A1C < 4.0 % (4.5-5.6)
[2022-06-23] MEDS ORDERED: POTASSIUM PHOS 3 MMOL/1 ML INFUSION IV STA ×2 (10:11→11:34)
[2022-06-23] MEDS ORDERED: D5W AND 1/2NSS 1,000 ML IV SCH (10:15)
[2022-06-23] MEDS ORDERED: POTASSIUM PHOSPHATE 24 MMOL in SODIUM CHLORIDE 0.9% 500 ML IV ONE (10:30)
[2022-06-23 10:50] LABS: BUN Creatinine Ratio 8.1 (10-20); Creatinine Clr Calc Pharmacy 70.2 ml/min; Est GFR (Non-African American) 90.6 ml/min; Magnesium 1.4 mg/dl (1.7-2.4); Potassium 3.2 mmol/L (3.5-5.1)
--- NOTE | 2022-06-23 11:00 | XRay Report ---
KUB CLINICAL HISTORY: Enteric tube placement. FINDINGS: An AP portable view of the lower chest and upper abdomen is correlated with abdominal CT da edilberto 06/22/2022. An enteric tube has been placed. The tip projects below the diaphragm over the mid to d istal stomach. A TIPS catheter projects over the liver. There is no evidence of bowel obstruction. No evidence of intraperitoneal free air is seen. Calcified gallstones project over the right upper quad rant. The skeletal structures are osteopenic and appear intact. Consolidation and a small pleural eff usion is noted at the left lung base. IMPRESSION: 1. Enteric tube placement as above. 2. Nonobstructed abdominal bowel gas pattern. 3. Cholelithiasis. Electronically signed by: Jay Lutz M.D. 06/23/2022 10:59 AM
[2022-06-23] MEDS: PHENYLEPHRINE/NSS 25 MG/250 ML BAG IV SCH ×3 (11:26→15:14)
--- NOTE | 2022-06-23 11:27 | Procedure Note ---
Procedure Note Date of Service June 23, 2022 Note Procedure: Internal Jugular Central Line Placement Attending: Dr. Dunbar APC: Nathen Morillo PA-C Indication: Central Drug Administration, Poor Venous Access, Multiple Lab Draws Necessary, etc. Anesthesia: Lidocaine 1% Emergent consent implied in the setting of worsening condition, need for multiple pressors, poor peripheral access. A time-out was completed verifying correct patient, procedure, site, positioning, and implants(s) or special equipment if applicable. Patients RIGHT Neck was cleansed and draped in the typical sterile fashion using Chloraprep. The Internal Jugular Vein and Carotid Artery were identified using ultrasound. The superficial tissue was anesthetized using 4.0 mL of 1% lidocaine without epinephrine under direct visualization with the ultrasound. After adequate anesthetization was achieved, the Internal Jugular vein was cannulated under direct ultrasound guidance using an introducer needle on a syringe. Good venous blood return was maintained prior to removal of syringe from introducer needle. Using Seldinger Technique, a guide wire was advanced through the introducer needle without resistance. The introducer needle was removed and ultrasound images were obtained of the guide wire within the Internal Jugular Vein and saved to the patients medical record. The dilator was advanced to the vessel without resistance. The dilator was exchanged for the triple lumen catheter which was advanced into the vessel without resistance. The guide wire was removed intact from the catheter without issue. Claves were placed on each catheter tip with confirmation of good blood flow from each lumen. Each port was easily flushed with sterile saline. The catheter was placed at 15 cm and sutured in place. BioPatch was applied to the catheter and a sterile Tegaderm dressing was applied over the catheter with careful attention to sterility. Patient tolerated procedure well. No immediate complications were met. Post procedure x-ray was completed, placement was appropriate and no pneumothorax was noted. Images obtained are saved for permanent record Procedural Ultrasound Guidance: Procedure Date: 06/23/2022 Indication: Pressors, poor peripheral access. Attending: Dr. Dunbar APC: Nathen Morillo PA-C Artery AND Vein visualized: YES Compressible Vein: YES Guidewire or Short Catheter seen in vein prior to dilation: YES Line confirmed in Vein with ultrasound: YES Images obtained are saved for permanent record. Coding CPT Codes Tubes, Drains, and Vasc Access - Tubes, Drains, and Vasc Access: [id number] Insertion Of Non-tunneled Catheter Age 5 Yrs> ([id number]) Tubes, Drains, and Vasc Access - Tubes, Drains, and Vasc Access: [id number] Ultrasonic Guide For Needle Placement ([id number]) [facility] [place] (Charges) Tubes, Drains, and Vasc Access Procedure 1: Tubes, Drains, and Vasc Access: [id number] Insertion Of Non-tunneled Catheter Age 6 Yrs> Procedure 2: Tubes, Drains, and Vasc Access: [id number] Ultrasonic Guide For Needle Placement
[2022-06-23] MEDS ORDERED: POTASSIUM CHLORIDE 20 MEQ/15 ML UDC PO ONE (11:30)
[2022-06-23 11:35] LABS: iSTAT Arterial Blood Gas HCO3 25 meg/L (19-24); iSTAT Arterial Blood Gas pCO2 32 mmHg (35-46); iSTAT Arterial Blood Gas pO2 138 mmHg (80-95); iSTAT Carbon Dioxide 26 mmol/L (24-31)
--- NOTE | 2022-06-23 11:51 | XRay Report ---
XR chest 1V portable HISTORY: 57 years-old Female s/p RIGHT IJ CVL status post placement of a right IJ central venous cat heter COMPARISON: 06/23/2019 TECHNIQUE: AP view of the chest FINDINGS: Endotracheal tube overlies the midline, 3.8 cm superior to the mohini. Enteric tube courses below the diaphragm outside the [id number]. Right IJ central venous catheter has been placed with distal ti p in the expected location of the mid SVC. No postprocedural pneumothorax identified. Mild subsegment al left basilar opacities are again noted. Bones appear grossly intact. IMPRESSION: 1. Lines and tubes as above. No pneumothorax. 2. Mild left basilar consolidation is unchanged. ACT 112: Negative or not required by law. The above report was generated using voice recognition software. It may contain grammatical, syntax o r spelling errors. Electronically signed by: Cameron Murray M.D. 06/23/2022 11:50 AM
[2022-06-23] MEDS: MAGNESIUM SULFATE / D5W 1 GM/100 ML BAG IV SCH ×2 (12:05→13:15)
[2022-06-23 12:09] LABS: Chloride Random Urine < 15 mmol/L; Potassium Random Urine 10.6 mmol/L; Sodium Random Urine < 10 mmol/L
[2022-06-23 12:17] LABS: Creatinine Urine Random 24.9 mg/dl
[2022-06-23] MEDS ORDERED: POTASSIUM CHLORIDE / WTR 20 MEQ/100 ML PLCT IV SCH (13:00)
[2022-06-23] MEDS ORDERED: POTASSIUM CHLORIDE / WTR 20 MEQ/100 ML PLCT IV ONE (13:00)
[2022-06-23 13:11] LABS: Hematocrit (blood only) 23.5 % (37.0-47.0); Hemoglobin 7.7 g/dl (12.0-16.0); Mean Corpuscular Hemoglobin 36.3 pg (25.0-34.0); Mean Corpuscular Hgb Conc 32.8 g/dL (32.0-36.0); Mean Corpuscular Volume 110.8 fL (80.0-100.0); Mean Platelet Volume 11.5 fL (9.4-12.4); Platelet Count 62 K/uL (130-400); RDW Coefficient of Variation 16.9 % (11.5-14.5); RDW Standard Deviation 68.9 fL (36.4-46.3); Red Blood Count 2.12 M/uL (4.20-5.40); White Blood Count 8.05 K/ul (4.8-10.8)
[2022-06-23 13:47] LABS: Basophils # (auto) 0.02 K/uL (0-0.2); Basophils % (auto) 0.2 %; Eosinophils # (auto) 0.08 K/uL (0-0.50); Immature Granulocytes # (auto) 0.04 K/uL (0.01-0.20); Immature Granulocytes % (auto) 0.5 %; Lymphocytes # (auto) 2.76 K/uL (1.2-3.4); Lymphocytes % (auto) 34.3 %; Macrocytosis Present; Monocytes # (auto) 0.44 K/uL (0.11-0.59); Monocytes % (auto) 5.5 %; Neutrophils # (auto) 4.71 K/uL (1.40-6.50); Neutrophils % (auto) 58.5 %; Polychromasia 1+
--- NOTE | 2022-06-23 14:40 | Communication Note ---
Date of Service: June 23, 2022 Critical CARE addendum: After confirming absent corneal, pupillary, gag, cough, vestibulocochlear (with cold water) reflexes. Apnea test was pursued Patient was on fixed dose of vasopressin, phenylephrine and Levophed. Map in the low 70s ABG prior to initiation of apnea test 7.38/38/107 on 30% Repeat ABG at the end of 10 min apnea trial 7.16/77/420 on 6L trach collar This is a positive apnea test. Patient was declared brain 2:15 PM Family and gift of life was made aware. 1 unit PRBC was also ordered. Patient will be given levothyroxine, Solu-Medrol as well as insulin per protocol. They have requested a bronchoscopy which will also be performed Please note the above document was generated using voice recognition software. It may contain grammatical, syntax or spelling errors.Any formal questions or concerns about the content, text or information contained within the body of this dictation should be directly addressed to the provider for clarification. Coding Level of Care Code 07233 CRITICAL CARE EA ADD 30M Time Spent (min) 32
[2022-06-23] MEDS ORDERED: SODIUM CHLORIDE 0.45 % 1,000 ML IV SCH (14:45)
[2022-06-23] MEDS ORDERED: ALBUTEROL 0.083% NEBU SOLN 3 ML VIAL INH SCH (15:00)
[2022-06-23] MEDS ORDERED: ceFAZolin 1000MG 1,000 MG/7.5 ML SYR IV SCH (15:00)
[2022-06-23] MEDS ORDERED: methylPREDNISolone 1,000 MG in DEXTROSE 5% 250 ML IV PRN (15:08)
[2022-06-23] MEDS ORDERED: SODIUM CHLORIDE 0.9% 250 ML IV PRN (15:10)
[2022-06-23] MEDS ORDERED: INSULIN HUMAN REGULAR BOLUS IV ONE (15:15)
[2022-06-23] MEDS ORDERED: DEXTROSE 50% 50 ML SYRINGE IV ONE ×2 (15:15→17:28)
[2022-06-23] MEDS ORDERED: METHYLPREDNISOLONE IV ONE (15:15)
[2022-06-23] MEDS ORDERED: LEVOTHYROXINE SODIUM IV ONE (15:15)
[2022-06-23] MEDS ORDERED: LEVOTHYROXINE SODIUM 200 MCG in SODIUM CHLORIDE 0.9% 500 ML IV PRN (15:15)
[2022-06-23] MEDS ORDERED: VASOPRESSIN IV ONE (15:15)
[2022-06-23] MEDS ORDERED: DEXTROSE 5% IV ONE (15:15)
[2022-06-23 15:31] LABS: iSTAT Art Bld Gas pCO2 Correct 76 mmHg (35-46); iSTAT Art Bld Gas pH Corrected 7.159 (7.35-7.45); iSTAT Arterial Blood Gas HCO3 27 meg/L (19-24); iSTAT Arterial Blood Gas pCO2 77 mmHg (35-46); iSTAT Arterial Blood Gas pH 7.16 (7.35-7.45); iSTAT Arterial Blood Gas pO2 > 420 mmHg (80-95); iSTAT Arterial Blood Gas pO2 C 475; iSTAT Carbon Dioxide 29 mmol/L (24-31); iSTAT Hematocrit 25 % (37-47); iSTAT Hemoglobin 8.5 g/dl (12.0-16.0); iSTAT Potassium 4.2 mmol/L (3.3-5.0); iSTAT Site Art Line; iSTAT Sodium 148 mmol/L (135-144)
--- NOTE | 2022-06-23 16:02 | Procedure Note ---
Procedure Note: Bronchoscopy Procedure PREOPERATIVE DIAGNOSIS: Pretransplant eval POSTOPERATIVE DIAGNOSIS: Pretransplant eval PROCEDURE PERFORMED: Flexible fiberoptic bronchoscopy with bronchoalveolar lavage COMPLICATIONS: None. INDICATION: Pretransplant eval PROCEDURE: Applied consent from alexi was obtained, the patient was in the ICU room. The patient had appropriate oxygen, blood pressure, heart rate, and respiratory rate monitoring applied and monitored continuously throughout the procedure. No sedation/anesthesia was used this patient was declared brain prior to the procedure. Patient had an ET tube in place. Bronchoscope was advanced through the ETT. Posterior to the ET tube as well as at the end of the ET tube greenish-yellow secretions were appreciated which were suctioned out The trachea appeared normal.The bronchoscope was then advanced through the mohini, which was sharp. The scope was then advanced into the right main stem and each segment, subsegement in the right upper lobe, right middle lobe and right lower lobe were visualized. There were minimal amount of clear secretion after suctioned out. There were no other findings including evidence of mass, anatomic distortions, or hemorrhage. At the separation of right middle lobe, the right lower lobe anterior lateral and medial subsegment there was minimal erythema but no active bleeding The bronchoscope was subsequently withdrawn and advanced into the left mainstem. Again, each segment and subsegment was well visualized. No specific masses or other lesions were identified throughout the tracheobronchial tree on the left. There were minimal amount of clear secretion which were suctioned out The bronchoscope was then wedged in the right middle lobe and bronchoalveolar lavage samples were obtained. 60 ml of saline was instilled and 40 ml of fluid was aspirated back.The bronchoscope was withdrawn and the area was suctioned clear. The bronchoscope was then withdrawn to the mainstem. The area was suctioned clear. The bronchoscope was then withdrawn. The patient tolerated the procedure well without evidence of desaturation or complications. Bronchoalveolar lavage samples were sent for cell count, Gram stain. Recommendations: Follow-up micro. Please note the above document was generated using voice recognition software. It may contain grammatical, syntax or spelling errors.Any formal questions or concerns about the content, text or information contained within the body of this dictation should be directly addressed to the provider for clarification. [facility] Procedure Codes (Charges) Pulmonary/Thoracic Procedure 1: Pulmonary and Thoracic: 74510 Dx bronchoscopy/BAL
[2022-06-23 16:06] LABS: INR 1.6 (0.9-1.1); Partial Thromboplastin Ratio 1.5; Partial Thromboplastin Time 40.1 Seconds (21.0-31.0); Prothrombin Time 16.6 Seconds (9.0-12.0)
[2022-06-23 16:15] LABS: iSTAT Allen Test Pass; iSTAT Art Bld Gas pCO2 Correct 37 mmHg (35-46); iSTAT Art Bld Gas pH Corrected 7.391 (7.35-7.45); iSTAT Arterial Blood Gas HCO3 23 meg/L (19-24); iSTAT Arterial Blood Gas pCO2 38 mmHg (35-46); iSTAT Arterial Blood Gas pH 7.38 (7.35-7.45); iSTAT Arterial Blood Gas pO2 107 mmHg (80-95); iSTAT Arterial Blood Gas pO2 C 103; iSTAT Carbon Dioxide 24 mmol/L (24-31); iSTAT FiO2 30 %; iSTAT Hematocrit 22 % (37-47); iSTAT Hemoglobin 7.5 g/dl (12.0-16.0); iSTAT Potassium 3.9 mmol/L (3.3-5.0); iSTAT Site Art Line; iSTAT Sodium 148 mmol/L (135-144)
[2022-06-23] MEDS ORDERED: POTASSIUM PHOSPHATE 30 MMOL in SODIUM CHLORIDE 0.9% 500 ML IV ONE (16:30)
[2022-06-23 16:36] LABS: Albumin Globulin Ratio 1.1 (0.9-2); Albumin Level 2.2 gm/dl (3.4-5.0); BUN Creatinine Ratio 10.8 (10-20); Bilirubin,Total 11.4 mg/dl (0.2-1.0); Calcium 6.4 mg/dl (8.6-10.3); Creatinine Clr Calc Pharmacy 76.3 ml/min; Est GFR (Non-African American) 99.2 ml/min; Magnesium 2.2 mg/dl (1.7-2.4); Phosphorus 1.6 mg/dl (2.5-4.9); Potassium 4.4 mmol/L (3.5-5.1); Total Protein 4.2 gm/dl (6.0-8.3); Troponin I High Sensitivity 25.3 pg/ml (0-14)
--- NOTE | 2022-06-23 16:48 | Cardiac Catheterization ---
[facility] Data: Display Artist Cardiac Status Clinical evaluation leading to the procedure CAD Presenation: Sx unlikely to be ischemic Diagnostic Physicians Name: Ferdinand Garcia MD Closure Device Recommendations: None Cardiac Cath Procedure Full Procedure Date June 23, 2022 Pre-Procedure Diagnosis Pre-Procedure Diagnosis: Cardiothoracic Symptom (Gift of Life) AUC Score AUC Score: -- Post-Procedure Diagnosis Post-Procedure Diagnosis: Normal Coronary Arteries and Normal Intracardiac Pressures Procedure(s) Performed Procedure(s) Performed: Coronary Angiography, Left Heart Cath and Ultrasound Guided Vascular Access Pot Maker Ferdinand Garcia MD Electrical Timing Device Calibrator(s) Aiden Estimated Blood Loss Estimated Blood Loss: 5 Summary of Findings Indication: Gift of life Access: Ultrasound-guided right radial 5 Fr Catheters: [place], pigtail Findings: LM -Short, normal caliber, angiographically normal LAD -medium caliber, wraps around apex and gives off medium D1. Angiographically normal Ramuslarge caliber, angiographically normal Circumflex -small caliber, angiographically normal RCA -dominant, medium caliber, angiographically normal LVEDP -10 Arterial Closure: TR band Summary: 1. Angiographically normal coronary arteries 2. Normal intracardiac filling pressure Recommendations: Per of life Hemodynamics Rest Ao:: 86/46/66 Final Ao: 89/49/69 LV: 92/10 Recommendations Recommendations: None Radiation Exposure (mGy) 143 Contrast (mls) 30 Anesthesia None [id number] Procedural Complication(s) None Disposition ICU I attest to the content of the Intraoperative Record and any orders documented therein. Any exceptions are noted below. [facility] Card Cath Procedure Codes Cardiac Catheterization Procedure 1: Cardiovascular Cath Procedures: 74482 Coronaries and LHC (+/-LV) Therapeutic Services & Ancillary Procedure 1: Cardiovascular Tx and Anc Procedures: 75996 Ultrasonic Guidance Vascular Access PG Care Time/CCT Total # of Minutes Spent Total Time Spent with Patient: Total time spent is greater than 50% in coordination of care (as documented) at patient's floor/unit and/or counseling patient:
[2022-06-23] MEDS ORDERED: NOREPINEPHRINE/D5W 4 MG/250 ML IV ONE (16:57)
[2022-06-23 19:52] LABS: Albumin Globulin Ratio 1.1 (0.9-2); Albumin Level 2.4 gm/dl (3.4-5.0); BUN Creatinine Ratio 8.5 (10-20); Bilirubin,Total 14.4 mg/dl (0.2-1.0); Creatinine Clr Calc Pharmacy 60.5 ml/min; Est GFR (African American) 92.7 ml/min; Globulin 2.2 gm/dl (2.5-4.0); Magnesium 1.9 mg/dl (1.7-2.4); Phosphorus 2.4 mg/dl (2.5-4.9); Potassium 4.2 mmol/L (3.5-5.1); Total Protein 4.6 gm/dl (6.0-8.3)
[2022-06-23 20:15] LABS: INR 1.6 (0.9-1.1); Partial Thromboplastin Ratio 1.5; Partial Thromboplastin Time 39.9 Seconds (21.0-31.0)
[2022-06-23 20:44] LABS: Hematocrit (blood only) 32.2 % (37.0-47.0); Hemoglobin 10.7 g/dl (12.0-16.0); Mean Corpuscular Hemoglobin 35.4 pg (25.0-34.0); Mean Corpuscular Hgb Conc 33.2 g/dL (32.0-36.0); Mean Corpuscular Volume 106.6 fL (80.0-100.0); Mean Platelet Volume 11.2 fL (9.4-12.4); Platelet Count 63 K/uL (130-400); RDW Coefficient of Variation 19.5 % (11.5-14.5); RDW Standard Deviation 75.3 fL (36.4-46.3); Red Blood Count 3.02 M/uL (4.20-5.40)
[2022-06-23 20:45] LABS: ALC (manual) 1.07 K/uL (1.2-3.4); ANC (manual) 7.48 K/uL (1.4-6.5); Lymphocytes # (manual) 1.07 K/uL (1.2-3.4); Lymphocytes % (manual) 12 %; Metamyelocytes # (manual) 0.09 K/uL (0-0); Metamyelocytes % (manual) 1 %; Monocytes # (manual) 0.18 K/uL (0.11-0.59); Monocytes % (manual) 2 %; Myelocytes # (manual) 0.09 K/uL (0-0); Myelocytes % (manual) 1 %; Neutrophils # (manual) 7.48 K/uL (1.40-6.50); Neutrophils % (manual) 84 %; Polychromasia 1+
[2022-06-23] MEDS ORDERED: methylPREDNISolone 1,000 MG in DEXTROSE 5% 250 ML IV SCH (21:30)
--- NOTE | 2022-06-24 15:19 | Discharge Summary ---
Date of Service June 24, 2022 Admission HPI Per Admitting Provider Esther Sutherland is a 56 year old female with alcohol use disorder who presents to the ER altered mental status after being found by her family on the floor after hearing a thud. Progressively having increasing shortness of breath and decreased responsiveness therefore EMS called and brought her to the ER. Patient not protecting her airway in the emergency room therefore she was intubated. Subsequent CT head showed a large subdural hematomawith midline shift and herniation of brain stem and stigmata of active bleeding. Case was discussed with [facility] - given the patient's presentation they do not feel that she would be a surgical candidate.ER provider discussed care with patients family and they wish to keep her here for comfort care awaiting all family members to visit. Discharge Data Allergies Allergy/AdvReac Type Severity Reaction Status Date / Time ciprofloxacin [From Cipro] Allergy Intermediate Rash Verified 03/21/22 23:31 nitrofurantoin Allergy Intermediate Rash Verified 03/21/22 23:31 [From Macrobid] mushroom AdvReac Intermediate Nausea Verified 03/21/22 23:31 Consultations 06/22/22 16:36 Consult Mushroom Sorter Grader Stat ED Decision to Admit Stat 06/23/22 14:44 Consult Cardiac Catheterization Stat Procedures Performed Operation Date: 06/23/22 15:30 Actual Procedures p Cath, Left with Cors and Vent - Bassam Garcia MD s Cineradiography w/Routine Exam - Bassam Garcia MD s Ultrasound Vascular Access - Bassam Garcia MD Ordered Studies 06/22/22 13:22 CT cervical spine wo con Stat CT head/brain wo con Stat 06/22/22 13:36 CT abd pelvis IV con only Stat CT chest diagnostic w con Stat 06/23/22 10:44 sono, invasive monitoring [US point of care ultrasound] Urgent 06/23/22 14:52 CL Cath Imgs for PACS use only Stat Hospital Course (1) Goals of care, counseling/discussion: Comatose on admission, GCS 3, with no motor response, verbal response or eye opening. Patient has a large subdural hematoma with midline shift and herniation of brain stem with stigmata of active bleeding. ER provider discussed with [facility] and felt this was a non- survivable injury and not a good surgical candidate. ER provider discussed with family (parents and son) and decided for comfort care at this time butwating for other family members to arrive ER provider discussed with regulatory affairs associate and ok to transfer to ICU for comfort care with eventual terminal extubation once all family members seen. Pupils are fixed and dilated ICU and comfort care orders placed. Discussed with ICU attending Dr Mullins and SANGEETHA Bautista. Discharge Plan Discharge Items Patient Disposition: Other Date/Time: 06/23/22 14:15 Coding Diagnoses Goals of care, counseling/discussion Z71.89
[2022-06-25 15:25] LABS: iSTAT Arterial Blood Gas HCO3 22 meg/L (19-24); iSTAT Arterial Blood Gas pCO2 33 mmHg (35-46); iSTAT Arterial Blood Gas pH 7.42 (7.35-7.45); iSTAT Arterial Blood Gas pO2 > 420 mmHg (80-95); iSTAT Carbon Dioxide 23 mmol/L (24-31); iSTAT Hematocrit 17 % (37-47); iSTAT Hemoglobin 5.8 g/dl (12.0-16.0); iSTAT Potassium 2.9 mmol/L (3.3-5.0); iSTAT Sodium 148 mmol/L (135-144)
== END 2022-06-23 14:15 | disposition expired | DRG 82 ==
LOC: ED 13:16 → 1E 17:20 → SUATTDRO 17:20 → 1E 17:51